=== PATIENT | male | born 1955 | race African-American/Black ===

== ENCOUNTER 2018-03-14 20:56 | Inpatient (IN) | payer MEDICAID ==
[~2018-03-14] VITALS: Ht 170.2 cm; Wt 70.3 kg
[2018-03-15] MEDS ORDERED: SODIUM CHLORIDE 0.9% 1,000 ML IV ONE (00:41)
[2018-03-15 01:28] LABS: INR 1.3; PROTHROMBIN TIME 13.4 sec (9.1-11.1)
[2018-03-15] MEDS ORDERED: LEVOFLOXACIN 750MG PREMIX 150 ML IV ONE (02:15)
[2018-03-15 02:59] LABS: CHLORIDE 99 mEq/L (98-107)
[2018-03-15 03:07] LABS: ETHANOL BLOOD < 10 mg/dL
[2018-03-15 04:07] LABS: HEMATOCRIT. 40.1 % (42.0-52.0); HEMOGLOBIN. 13.4 g/dL (14.0-18.0); MEAN CORPUSCULAR HEMOGLOBIN 32.3 pg (28.0-32.0); MEAN CORPUSCULAR VOLUME 96.4 fL (80.0-94.0); RED BLOOD CELL COUNT 4.16 mill/uL (4.7-6.1); RED CELL DISTRIBUTION WIDTH 15.2 % (11.6-14.6)
[2018-03-15 04:08] LABS: MEAN PLATELET VOLUME 10.2 fl (7.4-10.4); PLATELET 143 x1000/uL (130-400)
[2018-03-15 07:01] LABS: CLARITY URINE CLEAR (CLEAR); COLOR URINE YELLOW (YELLOW); KETONES URINE NEGATIVE (NEGATIVE); LEUKOCYTE ESTERASE URINE NEGATIVE (NEGATIVE); NITRITE URINE NEGATIVE (NEGATIVE); OCCULT BLOOD URINE TRACE (NEGATIVE); PH URINE 5.5 (4.5-8.0); PROTEIN URINE 1+ (NEGATIVE); SPECIFIC GRAVITY URINE 1.012 (1.005-1.030)
[2018-03-15 07:13] LABS: *BARBITURATES SCREEN URINE NEGATIVE (NEGATIVE); *BENZODIAZEPINES SCREEN URINE NEGATIVE (NEGATIVE); *COCAINE SCREEN URINE NEGATIVE (NEGATIVE)
[2018-03-15 07:14] LABS: CANNABINOID URINE SCREEN NEGATIVE (NEGATIVE); METHADONE URINE SCREEN NEGATIVE (NEGATIVE); OPIATES URINE SCREEN NEGATIVE (NEGATIVE); PHENCYCLIDINE URINE SCREEN NEGATIVE (NEGATIVE)
[2018-03-15 07:23] LABS: *AMPHETAMINES SCREEN URINE NEGATIVE (NEGATIVE)
[2018-03-15 08:28] LABS: PLATELET ESTIMATE NORMAL
[2018-03-15 09:58] VITALS: BP 164/96
[2018-03-15] MEDS ORDERED: ACETAMINOPHEN 325MG TABLET PO PRN (10:15)
[2018-03-15] MEDS ORDERED: ONDANSETRON HCL 4MG/2ML INJ IV PRN (10:15)
[2018-03-15 12:00] VITALS: BP 170/97
[2018-03-15] MEDS: TAMSULOSIN HCL 0.4MG SR CAPSULE PO SCH (12:52)
[2018-03-15] MEDS: AMLODIPINE 5MG TABLET PO SCH ×2 (12:53→21:47)
[2018-03-15] MEDS: CLONIDINE 0.1MG TABLET PO PRN (12:54)
[2018-03-15] MEDS ORDERED: SODIUM CHLORIDE 0.45% 1,000 ML IV SCH (13:15)
[2018-03-15] MEDS ORDERED: POTASSIUM CHLORIDE 20MEQ TABLET SR PO SCH (13:45)
[2018-03-15 13:46] LABS: VITAMIN B12 SERUM 441 pg/mL (211-911)
[2018-03-15] MEDS ORDERED: PAMIDRONATE DISODIUM 90 MG in SODIUM CHLORIDE 0.9% 1,000 ML IV SCH (15:00)
[2018-03-15] MEDS ORDERED: PNEUMOCOCCAL 23-VAL P-SAC VAC 0.5 ML IM ONE (15:00)
[2018-03-15] MEDS ORDERED: INFLUENZA VIRUS VACCINE(AFLURIA) 0.5ML SYR IM ONE (15:00)
[2018-03-15 16:00] VITALS: BP 162/92
[2018-03-15] MEDS ORDERED: AMLO5TAB4 MT (16:20)
[2018-03-15] MEDS ORDERED: TAMS-11 PO (16:22)
[2018-03-15] MEDS ORDERED: MORPHINE SULFATE 4 MG/ML CPJ (NOT FOR IM USE) IV PRN (17:00)
[2018-03-15 20:00] VITALS: BP 163/99
[2018-03-15] MEDS: METOPROLOL TARTRATE 50MG TABLET PO SCH (21:47)
[2018-03-16] VITALS: BP 159/89
[2018-03-16] MEDS: DEXT 5%/0.9% NACL 1,000 ML IV SCH ×3 (01:21→14:20)
[2018-03-16 04:00] VITALS: BP 174/94
[2018-03-16] MEDS: CLONIDINE 0.1MG TABLET PO PRN (05:47)
[2018-03-16 07:35] LABS: BASOPHILS % 0.4 % (0.0-2.0); EOSINOPHILS % 0.5 % (0.0-5.0); HEMATOCRIT. 33.1 % (42.0-52.0); HEMOGLOBIN. 11.8 g/dL (14.0-18.0); LYMPHOCYTES % 14.7 % (20.0-50.0); MEAN CORPUSCULAR HEMOGLOBIN 34.2 pg (28.0-32.0); MEAN PLATELET VOLUME 9.5 fl (7.4-10.4); MONOCYTES % 11.8 % (2.0-8.0); NEUTROPHILS % 72.6 % (40.0-76.0); PLATELET 142 x1000/uL (130-400); RED BLOOD CELL COUNT 3.45 mill/uL (4.7-6.1); RED CELL DISTRIBUTION WIDTH 15.2 % (11.6-14.6)
[2018-03-16 08:00] VITALS: BP 177/89
[2018-03-16] MEDS: AMLODIPINE 5MG TABLET PO SCH ×2 (09:09→21:00)
[2018-03-16] MEDS: TAMSULOSIN HCL 0.4MG SR CAPSULE PO SCH (09:09)
[2018-03-16] MEDS: METOPROLOL TARTRATE 50MG TABLET PO SCH ×2 (09:09→21:00)
[2018-03-16] MEDS ORDERED: KCL 10MEQ/50ML PREMIX 50 ML IV ONE (10:45)
[2018-03-16 12:00] VITALS: BP 172/94
[2018-03-16] MEDS ORDERED: POTASSIUM CHLORIDE INJ 30 MEQ in DEXT 5% WATER 250 ML IV SCH (12:00)
[2018-03-16] MEDS ORDERED: POTASSIUM CHLORIDE 20MEQ TABLET SR PO SCH (12:30)
[2018-03-16] MEDS: HYDRALAZINE HCL 100MG TABLET PO SCH ×2 (12:45→21:38)
[2018-03-16] MEDS ORDERED: HYDRALAZINE HCL 50MG TABLET PO SCH (14:00)
[2018-03-16] MEDS ORDERED: LACTULOSE 20G/30ML UDC PO NR (14:30)
[2018-03-16 16:00] VITALS: BP 182/92
[2018-03-16] MEDS: CLONIDINE 0.1MG TABLET PO SCH (17:01)
[2018-03-16] MEDS ORDERED: NA PHOS,M-B/NA PHOS,DI-BA ENEMA 118ML PR PRN (18:00)
[2018-03-16 20:00] VITALS: BP 160/85
[2018-03-17] VITALS: BP 158/79
[2018-03-17 04:00] VITALS: BP 157/97
[2018-03-17] MEDS: HYDRALAZINE HCL 100MG TABLET PO SCH ×3 (05:23→22:00)
[2018-03-17] MEDS: CLONIDINE 0.1MG TABLET PO SCH (05:24)
[2018-03-17 07:16] LABS: BASOPHILS % 0.5 % (0.0-2.0); EOSINOPHILS % 0.6 % (0.0-5.0); LYMPHOCYTES % 17.2 % (20.0-50.0); MEAN CORPUSCULAR HEMOGLOBIN 33.8 pg (28.0-32.0); MEAN CORPUSCULAR VOLUME 95.3 fL (80.0-94.0); MEAN PLATELET VOLUME 9.1 fl (7.4-10.4); MONOCYTES % 14.6 % (2.0-8.0); NEUTROPHILS % 67.1 % (40.0-76.0); PLATELET 133 x1000/uL (130-400); RED BLOOD CELL COUNT 3.25 mill/uL (4.7-6.1); RED CELL DISTRIBUTION WIDTH 15.5 % (11.6-14.6)
[2018-03-17 08:00] VITALS: BP 180/81
[2018-03-17] MEDS: METOPROLOL TARTRATE 50MG TABLET PO SCH ×2 (09:04→20:58)
[2018-03-17] MEDS: AMLODIPINE 5MG TABLET PO SCH ×2 (09:04→20:58)
[2018-03-17] MEDS: CLONIDINE 0.1MG TABLET PO PRN (09:05)
[2018-03-17] MEDS: TAMSULOSIN HCL 0.4MG SR CAPSULE PO SCH (09:05)
[2018-03-17] MEDS: DOCUSATE SODIUM SUGAR FREE 100MG/10ML UDC PO SCH (09:08)
[2018-03-17] MEDS ORDERED: FUROSEMIDE 40MG/4ML VIAL IVP SCH (09:15)
[2018-03-17] MEDS ORDERED: LIDOCAINE HCL 1% 20ML VIAL (Pyxis) INJ ONE (09:51)
[2018-03-17] MEDS ORDERED: LEVOFLOXACIN 500MG PREMIX 100 ML IV SCH (11:00)
[2018-03-17] MEDS ORDERED: BISACODYL 10MG SUPP PR PRN (11:15)
[2018-03-17 12:00] VITALS: BP 170/96
[2018-03-17] MEDS ORDERED: IPRATROPIUM/ALBUTEROL 0.5-3(2.5)MG/3ML NEB HHN PRN (13:15)
[2018-03-17] MEDS: CLONIDINE 0.2MG TABLET PO SCH ×2 (14:00→22:00)
[2018-03-17] MEDS ORDERED: HEPARIN SODIUM 1,000 UNIT/1ML VIAL IV SCH (15:00)
[2018-03-17 20:00] VITALS: BP 114/66
[2018-03-17 22:24] VITALS: BP 110/68
[2018-03-18] VITALS: BP 114/69
[2018-03-18 04:00] VITALS: BP 114/75
[2018-03-18] MEDS: CLONIDINE 0.2MG TABLET PO SCH ×3 (05:23→22:00)
[2018-03-18] MEDS: HYDRALAZINE HCL 100MG TABLET PO SCH ×3 (05:23→22:00)
[2018-03-18 07:38] LABS: HEMATOCRIT. 33.1 % (42.0-52.0); HEMOGLOBIN. 11.5 g/dL (14.0-18.0); MEAN CORPUSCULAR HEMOGLOBIN 33.2 pg (28.0-32.0); MEAN CORPUSCULAR VOLUME 95.2 fL (80.0-94.0); MEAN PLATELET VOLUME 9.2 fl (7.4-10.4); PLATELET 124 x1000/uL (130-400); RED BLOOD CELL COUNT 3.48 mill/uL (4.7-6.1); RED CELL DISTRIBUTION WIDTH 15.3 % (11.6-14.6)
[2018-03-18 08:00] VITALS: BP 112/60
[2018-03-18 08:01] LABS: PLATELET ESTIMATE SLIGHTLY DECREASED
[2018-03-18 08:09] LABS: PHOSPHORUS 2.9 mg/dL (2.5-4.9)
[2018-03-18] MEDS: TAMSULOSIN HCL 0.4MG SR CAPSULE PO SCH (08:54)
[2018-03-18] MEDS: METOPROLOL TARTRATE 50MG TABLET PO SCH ×2 (08:54→22:12)
[2018-03-18] MEDS: AMLODIPINE 5MG TABLET PO SCH ×2 (08:54→21:00)
[2018-03-18] MEDS: DOCUSATE SODIUM SUGAR FREE 100MG/10ML UDC PO SCH (08:54)
[2018-03-18 12:00] VITALS: BP 118/74
[2018-03-18 13:09] LABS: A/G RATIO 0.4 (0.7-1.7); ALBUMIN 3.1 g/dL (2.9-4.4); ALPHA-1-GLOBULIN 0.3 g/dL (0.0-0.4); ALPHA-2-GLOBULIN 0.8 g/dL (0.4-1.0); BETA GLOBULIN 5.7 g/dL (0.7-1.3); GAMMA GLOBULINS 0.4 g/dL (0.4-1.8); GLOBULIN TOTAL 7.3 g/dL (2.2-3.9); M-SPIKE 4.7 g/dL (Not Observed); TOTAL PROTEIN SERUM 10.4 g/dL (6.0-8.5)
[2018-03-18 16:00] VITALS: BP 110/73
[2018-03-18 20:00] VITALS: BP 121/74
[2018-03-18] MEDS: HYDROCODONE/ACETAMINOPHEN 5/325MG TABLET PO PRN (22:14)
[2018-03-19] VITALS: BP 107/72
[2018-03-19 04:00] VITALS: BP 126/84
[2018-03-19 04:09] LABS: KAPPA LT CHAINS FREE SERUM 89.4 mg/L (3.3-19.4); KAPPA/LAMBDA RATIO 8.76 (0.26-1.65); LAMBDA LT CHAINS FREE SERUM 10.2 mg/L (5.7-26.3)
[2018-03-19] MEDS: HYDRALAZINE HCL 100MG TABLET PO SCH ×3 (05:37→22:00)
[2018-03-19] MEDS: CLONIDINE 0.2MG TABLET PO SCH ×3 (05:37→22:00)
[2018-03-19 08:15] VITALS: BP 130/80
[2018-03-19 09:06] LABS: ANGIOTENSION CONVERTING ENZYME 18 U/L (14-82)
[2018-03-19 09:39] LABS: BASOPHILS % 0.7 % (0.0-2.0); EOSINOPHILS % 1.7 % (0.0-5.0); HEMATOCRIT. 35.1 % (42.0-52.0); HEMOGLOBIN. 12.2 g/dL (14.0-18.0); LYMPHOCYTES % 22.9 % (20.0-50.0); MEAN CORPUSCULAR HEMOGLOBIN 32.5 pg (28.0-32.0); MEAN PLATELET VOLUME 9.1 fl (7.4-10.4); MONOCYTES % 12.7 % (2.0-8.0); PLATELET 119 x1000/uL (130-400); RED BLOOD CELL COUNT 3.74 mill/uL (4.7-6.1); RED CELL DISTRIBUTION WIDTH 15.4 % (11.6-14.6)
[2018-03-19 09:54] LABS: PHOSPHORUS 2.4 mg/dL (2.5-4.9)
[2018-03-19] MEDS: DOCUSATE SODIUM SUGAR FREE 100MG/10ML UDC PO SCH (10:18)
[2018-03-19] MEDS: METOPROLOL TARTRATE 50MG TABLET PO SCH ×2 (10:19→21:00)
[2018-03-19] MEDS: TAMSULOSIN HCL 0.4MG SR CAPSULE PO SCH (10:19)
[2018-03-19] MEDS: AMLODIPINE 5MG TABLET PO SCH ×2 (10:20→21:00)
[2018-03-19] MEDS: LEVOFLOXACIN 250MG PREMIX 50 ML IV SCH (11:40)
[2018-03-19 12:10] VITALS: BP 132/70
[2018-03-19] MEDS ORDERED: POTASSIUM CHLORIDE 20MEQ TABLET SR PO NR (13:15)
[2018-03-19] MEDS ORDERED: POTASSIUM PHOS,M-BASIC-D-BASIC 10 MMOL in DEXT 5% WATER 246.6667 ML IV NR (14:30)
[2018-03-19 16:00] VITALS: BP 106/73
[2018-03-19 20:06] VITALS: BP 110/68
[2018-03-20] VITALS (7 sets, daily range): BP systolic 100–137; BP diastolic 56–81
[2018-03-20] MEDS: CLONIDINE 0.2MG TABLET PO SCH ×3 (05:38→20:44)
[2018-03-20] MEDS: HYDRALAZINE HCL 100MG TABLET PO SCH ×3 (05:38→20:44)
[2018-03-20 07:48] LABS: BASOPHILS % 0.3 % (0.0-2.0); EOSINOPHILS % 1.6 % (0.0-5.0); HEMATOCRIT. 31.9 % (42.0-52.0); HEMOGLOBIN. 11.4 g/dL (14.0-18.0); LYMPHOCYTES % 21.4 % (20.0-50.0); MEAN CORPUSCULAR HEMOGLOBIN 33.9 pg (28.0-32.0); MEAN CORPUSCULAR VOLUME 94.5 fL (80.0-94.0); MEAN PLATELET VOLUME 9.1 fl (7.4-10.4); MONOCYTES % 13.7 % (2.0-8.0); PLATELET 118 x1000/uL (130-400); RED BLOOD CELL COUNT 3.38 mill/uL (4.7-6.1); RED CELL DISTRIBUTION WIDTH 15.6 % (11.6-14.6)
[2018-03-20 08:42] LABS: PHOSPHORUS 2.9 mg/dL (2.5-4.9)
[2018-03-20] MEDS: AMLODIPINE 5MG TABLET PO SCH ×2 (10:12→20:42)
[2018-03-20] MEDS: METOPROLOL TARTRATE 50MG TABLET PO SCH ×2 (10:12→20:39)
[2018-03-20] MEDS: HYDROCODONE/ACETAMINOPHEN 5/325MG TABLET PO PRN (11:20)
[2018-03-20] MEDS ORDERED: PAMIDRONATE DISODIUM 60 MG in SODIUM CHLORIDE 0.9% 1,000 ML IV NR (16:00)
[2018-03-20] MEDS ORDERED: POTASSIUM CHLORIDE 20MEQ TABLET SR PO NR (18:30)
[2018-03-21] VITALS (7 sets, daily range): BP systolic 107–137; BP diastolic 59–73
[2018-03-21] MEDS: CLONIDINE 0.2MG TABLET PO SCH ×3 (06:48→22:00)
[2018-03-21] MEDS: HYDRALAZINE HCL 100MG TABLET PO SCH ×3 (06:48→21:19)
[2018-03-21 07:59] LABS: PHOSPHORUS 2.7 mg/dL (2.5-4.9)
[2018-03-21 08:08] LABS: BASOPHILS % 0.4 % (0.0-2.0); EOSINOPHILS % 2.3 % (0.0-5.0); HEMATOCRIT. 31.2 % (42.0-52.0); HEMOGLOBIN. 10.9 g/dL (14.0-18.0); LYMPHOCYTES % 26.9 % (20.0-50.0); MEAN CORPUSCULAR VOLUME 94.3 fL (80.0-94.0); MEAN PLATELET VOLUME 8.8 fl (7.4-10.4); MONOCYTES % 14.5 % (2.0-8.0); NEUTROPHILS % 55.9 % (40.0-76.0); PLATELET 120 x1000/uL (130-400); RED BLOOD CELL COUNT 3.31 mill/uL (4.7-6.1); RED CELL DISTRIBUTION WIDTH 15.1 % (11.6-14.6)
[2018-03-21] MEDS: DOCUSATE SODIUM SUGAR FREE 100MG/10ML UDC PO SCH ×2 (08:13→10:36)
[2018-03-21] MEDS: METOPROLOL TARTRATE 50MG TABLET PO SCH ×2 (08:14→21:19)
[2018-03-21] MEDS: AMLODIPINE 5MG TABLET PO SCH ×2 (08:14→21:19)
[2018-03-21] MEDS: TAMSULOSIN HCL 0.4MG SR CAPSULE PO SCH ×2 (08:14→10:35)
[2018-03-21] MEDS: LEVOFLOXACIN 250MG PREMIX 50 ML IV SCH (08:15)
[2018-03-21] MEDS ORDERED: POTASSIUM CHLORIDE 20MEQ TABLET SR PO NR (12:00)
[2018-03-21 13:06] LABS: VITAMIN D 1-25 DIHYDROXY < 5.0 pg/mL (19.9-79.3)
[2018-03-22] VITALS: BP 109/68
[2018-03-22 04:00] VITALS: BP 124/70
[2018-03-22] MEDS: CLONIDINE 0.2MG TABLET PO SCH ×3 (06:00→21:00)
[2018-03-22] MEDS: HYDRALAZINE HCL 100MG TABLET PO SCH ×3 (06:02→21:00)
[2018-03-22 07:07] LABS: BASOPHILS % 0.4 % (0.0-2.0); EOSINOPHILS % 1.5 % (0.0-5.0); HEMATOCRIT. 31.5 % (42.0-52.0); HEMOGLOBIN. 11.2 g/dL (14.0-18.0); LYMPHOCYTES % 24.6 % (20.0-50.0); MEAN CORPUSCULAR HEMOGLOBIN 33.8 pg (28.0-32.0); MEAN CORPUSCULAR VOLUME 95.1 fL (80.0-94.0); MEAN PLATELET VOLUME 8.5 fl (7.4-10.4); MONOCYTES % 14.4 % (2.0-8.0); NEUTROPHILS % 59.1 % (40.0-76.0); PLATELET 140 x1000/uL (130-400); RED BLOOD CELL COUNT 3.31 mill/uL (4.7-6.1); RED CELL DISTRIBUTION WIDTH 14.9 % (11.6-14.6)
[2018-03-22 08:00] VITALS: BP 126/61
[2018-03-22] MEDS: DOCUSATE SODIUM SUGAR FREE 100MG/10ML UDC PO SCH (09:00)
[2018-03-22] MEDS: AMLODIPINE 5MG TABLET PO SCH ×2 (10:08→20:59)
[2018-03-22] MEDS: METOPROLOL TARTRATE 50MG TABLET PO SCH ×2 (10:09→20:58)
[2018-03-22] MEDS: LEVOFLOXACIN 250MG TABLET PO SCH (10:09)
[2018-03-22] MEDS: TAMSULOSIN HCL 0.4MG SR CAPSULE PO SCH (10:10)
[2018-03-22 12:00] VITALS: BP 118/68
[2018-03-22] MEDS: POTASSIUM CHLORIDE 20MEQ TABLET SR PO NR ×3 (15:45→19:22)
[2018-03-22 16:00] VITALS: BP 120/68
[2018-03-22 20:00] VITALS: BP 120/66
[2018-03-23] VITALS: BP 110/67
[2018-03-23 04:00] VITALS: BP 125/68
[2018-03-23] MEDS: HYDRALAZINE HCL 100MG TABLET PO SCH ×2 (05:32→14:12)
[2018-03-23] MEDS: CLONIDINE 0.2MG TABLET PO SCH ×2 (05:33→14:00)
[2018-03-23 07:40] LABS: HEMOGLOBIN. 10.3 g/dL (14.0-18.0); MEAN CORPUSCULAR HEMOGLOBIN 33.6 pg (28.0-32.0); MEAN CORPUSCULAR VOLUME 94.4 fL (80.0-94.0); MEAN PLATELET VOLUME 8.4 fl (7.4-10.4); PLATELET 174 x1000/uL (130-400); RED BLOOD CELL COUNT 3.07 mill/uL (4.7-6.1)
[2018-03-23 08:00] VITALS: BP 139/73
[2018-03-23] MEDS: LEVOFLOXACIN 250MG TABLET PO SCH (08:45)
[2018-03-23] MEDS: TAMSULOSIN HCL 0.4MG SR CAPSULE PO SCH (08:45)
[2018-03-23] MEDS: AMLODIPINE 5MG TABLET PO SCH (08:45)
[2018-03-23] MEDS: DOCUSATE SODIUM SUGAR FREE 100MG/10ML UDC PO SCH (08:46)
[2018-03-23] MEDS: METOPROLOL TARTRATE 50MG TABLET PO SCH (08:46)
[2018-03-23 10:40] LABS: CHLORIDE 103 mEq/L (98-107)
[2018-03-23] MEDS ORDERED: POTASSIUM CHLORIDE 20MEQ/PACKET PO NR (11:00)
[2018-03-23 12:00] VITALS: BP 114/72
[2018-03-23 15:34] VITALS: BP 114/72
[2018-03-23 16:00] VITALS: BP 120/65
[2018-03-23 20:27] LABS: PLATELET ESTIMATE NORMAL
[2018-03-24] MEDS ORDERED: LEVOFLOXACIN 500MG TABLET PO SCH (11:00)
== END 2018-03-23 18:30 | disposition home health service (06) | DRG 691 ==
LOC: ER 20:56 → 7WST 03-15 04:13 → EDBEDREQ 03-15 04:16 → EDBEDREQTM 03-15 04:16 → ENRESERV 03-15 07:04
PROVIDERS: ADMIT Internal Medicine; ATTEND Internal Medicine
PROC: 02HV33Z Insertion of Infusion Device into Superior Vena Cava, Percutaneous Approach (ICD-10-PCS; principal; 2018-03-17)
PROC: B5181ZA Fluoroscopy of Superior Vena Cava using Low Osmolar Contrast, Guidance (ICD-10-PCS; 2018-03-17)
PROC: B548ZZA Ultrasonography of Superior Vena Cava, Guidance (ICD-10-PCS; 2018-03-17)
PROC: 5A1D70Z Performance of Urinary Filtration, Intermittent, Less than 6 Hours Per Day (ICD-10-PCS; 2018-03-17)
DX: C90.00 Multiple myeloma not having achieved remission (principal); J96.01 Acute respiratory failure with hypoxia; E43 Unspecified severe protein-calorie malnutrition; G93.41 Metabolic encephalopathy; I50.43 Acute on chronic combined systolic (congestive) and diastolic (congestive) heart failure; J18.1 Lobar pneumonia, unspecified organism; N17.9 Acute kidney failure, unspecified; E87.0 Hyperosmolality and hypernatremia; I11.0 Hypertensive heart disease with heart failure; E83.52 Hypercalcemia; M54.9 Dorsalgia, unspecified; E87.6 Hypokalemia; M48.56XA Collapsed vertebra, not elsewhere classified, lumbar region, initial encounter for fracture; K57.30 Diverticulosis of large intestine without perforation or abscess without bleeding; G89.29 Other chronic pain; N40.0 Benign prostatic hyperplasia without lower urinary tract symptoms; F10.10 Alcohol abuse, uncomplicated; K59.00 Constipation, unspecified; F17.210 Nicotine dependence, cigarettes, uncomplicated; J98.11 Atelectasis; Z82.49 Family history of ischemic heart disease and other diseases of the circulatory system; Z86.73 Personal history of transient ischemic attack (TIA), and cerebral infarction without residual deficits; Z68.24 Body mass index [BMI] 24.0-24.9, adult
CPT/HCPCS: 36415; 36556; 70551; 71045; 74018; 74176; 76937; 77001; 80048; 80305; 82140; 82164; 82330; 82533; 82607; 82652; 82784; 82962; 83735; 83880; 83883; 83970; 84100; 84153; 84155; 84165; 90686; 90732; 92610; 93306; 93970; 96361; 96365; 97162; 97530; 99285; C1752; G0482; J1644; J1956; J2270; J2430; J3480; J3490; J7030; J7040; J7042; J7050; J7060; G0103

== ENCOUNTER 2018-04-29 21:06 | Inpatient (IN) | payer MEDICAID ==
[~2018-04-29] VITALS: Ht 170.2 cm; Wt 75.3 kg
[~2018-04-29 21:06] MED LIST: TAMS-11 PO
[2018-04-29 22:36] LABS: BG BASE EXCESS 2.7 mmol/L (-2.0-2.0); BG BILEVEL POS AIRWAY PRESSURE 17/5; BG CARBOXYHEMOGLOBIN 0.4 % (0.5-1.5); BG DEOXYHEMOGLOBIN 0.2 % (0.0-5.0); BG FRACTION INSPIRED OXYGEN 100; BG HCO3 ACT 27.3 mmol/L (22.0-26.0); BG METHEMOGLOBIN 0.2 % (0.0-1.5); BG OXYGEN SATURATION 99.8 % (92.0-98.5); BG OXYHEMOGLOBIN 99.2 % (94.0-97.0); BG PO2 442.6 mmHg (75.0-100.0); BG SAMPLE SITE RIGHT BRACHIAL; BG TOTAL HEMOGLOBIN 8.9 g/dL (12.0-18.0); BG VENT MODE MASK - BIPAP; BG VENT RATE 16 set
[2018-04-29 22:38] LABS: CHLORIDE 97 mEq/L (98-107)
[2018-04-29 22:42] LABS: INR 1.3; PROTHROMBIN TIME 12.6 sec (9.1-11.1)
[2018-04-29] MEDS ORDERED: SODIUM CHLORIDE 0.9% 1,000 ML IV ONE ×3 (22:45→23:15)
[2018-04-30] VITALS (49 sets, daily range): BP systolic 97–162; BP diastolic 43–86
[2018-04-30 01:25] LABS: HEMATOCRIT. 23.8 % (42.0-52.0); HEMOGLOBIN. 7.9 g/dL (14.0-18.0); MEAN CORPUSCULAR HEMOGLOBIN 31.4 pg (28.0-32.0); MEAN CORPUSCULAR VOLUME 94.6 fL (80.0-94.0); RED BLOOD CELL COUNT 2.51 mill/uL (4.7-6.1); RED CELL DISTRIBUTION WIDTH 18.1 % (11.6-14.6)
[2018-04-30 09:30] LABS: COLOR URINE YELLOW (YELLOW); KETONES URINE NEGATIVE (NEGATIVE); LEUKOCYTE ESTERASE URINE NEGATIVE (NEGATIVE); NITRITE URINE NEGATIVE (NEGATIVE); OCCULT BLOOD URINE NEGATIVE (NEGATIVE); PH URINE 5.5 (4.5-8.0); PROTEIN URINE NEGATIVE (NEGATIVE); SPECIFIC GRAVITY URINE 1.018 (1.005-1.030); UROBILINOGEN URINE 0.2 E.U./dL (0.2-1.0)
[2018-04-30] MEDS ORDERED: PROPOFOL 10MG/ML 100ML 100 ML IV SCH (09:30)
[2018-04-30 09:32] LABS: CLARITY URINE CLEAR (CLEAR)
[2018-04-30] MEDS ORDERED: PAMIDRONATE DISODIUM 90 MG in SODIUM CHLORIDE 0.9% 1,000 ML IV ONE (10:00)
[2018-04-30] MEDS: PROPOFOL 10MG/ML 100ML 100 ML IV PRN ×3 (10:15→21:47)
[2018-04-30 10:58] LABS: BG BASE EXCESS 1.3 mmol/L (-2.0-2.0); BG CARBOXYHEMOGLOBIN 0.2 % (0.5-1.5); BG DEOXYHEMOGLOBIN 3.1 % (0.0-5.0); BG FRACTION INSPIRED OXYGEN 50; BG HCO3 ACT 24.4 mmol/L (22.0-26.0); BG OXYGEN SATURATION 96.9 % (92.0-98.5); BG OXYHEMOGLOBIN 96.7 % (94.0-97.0); BG PCO2 32.1 mmHg (35.0-45.0); BG PH 7.499 (7.350-7.450); BG PO2 91.8 mmHg (75.0-100.0); BG SAMPLE SITE RIGHT RADIAL; BG TIDAL VOLUME(mL) 550 mL; BG TOTAL HEMOGLOBIN 7.6 g/dL (12.0-18.0); BG VENT MODE VENT - A/C; BG VENT RATE 16 set
[2018-04-30] MEDS ORDERED: IPRATROPIUM/ALBUTEROL 0.5-3(2.5)MG/3ML NEB HHN PRN (11:00)
[2018-04-30] MEDS ORDERED: BISACODYL 10MG SUPP PR PRN (11:15)
[2018-04-30] MEDS ORDERED: PAMIDRONATE DISODIUM 60 MG in SODIUM CHLORIDE 0.9% 1,000 ML IV NR (11:30)
[2018-04-30] MEDS: DOCUSATE SODIUM SUGAR FREE 100MG/10ML UDC NG SCH (11:50)
[2018-04-30] MEDS ORDERED: IPRATROPIUM/ALBUTEROL 0.5-3(2.5)MG/3ML NEB HHN SCH (12:00)
[2018-04-30] MEDS: PIPERACILLIN/TAZ 3.375G PREMIX 50 ML IV SCH ×3 (12:38→23:55)
[2018-04-30] MEDS: PANTOPRAZOLE SODIUM 40 MG/VIAL IV SCH (12:38)
[2018-04-30] MEDS: IPRATROPIUM/ALBUTEROL 0.5-3(2.5)MG/3ML NEB INH SCH ×3 (12:51→20:47)
[2018-04-30] MEDS ORDERED: KCL 20MEQ/100ML PREMIX 100 ML IV NR (13:00)
[2018-04-30] MEDS ORDERED: VANCOMYCIN 1250MG in DEXTROSE 5% WATER 250ML IV NR (13:00)
[2018-04-30] MEDS: METRONIDAZOLE 500 MG PREMIX 100 ML IV SCH ×2 (13:50→21:47)
[2018-04-30] MEDS: SODIUM CHLORIDE 0.9% 1,000 ML IV SCH ×2 (13:51→21:48)
[2018-04-30] MEDS ORDERED: FUROSEMIDE 40MG/4ML VIAL IVP NR (14:00)
[2018-04-30 14:41] LABS: NUCLEATED RED BLOOD CELLS 1 /100 WBC
[2018-04-30 14:43] LABS: MEAN PLATELET VOLUME 8.3 fl (7.4-10.4); PLATELET 102 x1000/uL (130-400); PLATELET ESTIMATE DECREASED
[2018-04-30 16:26] LABS: VITAMIN B12 SERUM 283 pg/mL (211-911)
[2018-04-30] MEDS ORDERED: THIAMINE HCL 100 MG in SODIUM CHLORIDE 0.9% 49 ML IV NR (17:00)
[2018-04-30 17:36] LABS: FERRITIN 1130 ng/mL (22-322)
[2018-05-01] VITALS (81 sets, daily range): BP systolic 104–168; BP diastolic 57–133
[2018-05-01] MEDS: IPRATROPIUM/ALBUTEROL 0.5-3(2.5)MG/3ML NEB INH SCH ×6 (00:21→20:38)
[2018-05-01 05:07] LABS: MEAN CORPUSCULAR HEMOGLOBIN 31.2 pg (28.0-32.0); MEAN CORPUSCULAR VOLUME 94.6 fL (80.0-94.0); MEAN PLATELET VOLUME 8.1 fl (7.4-10.4); PLATELET 95 x1000/uL (130-400); RED BLOOD CELL COUNT 1.69 mill/uL (4.7-6.1)
[2018-05-01 05:12] LABS: HEMOGLOBIN. 5.3 g/dL (14.0-18.0)
[2018-05-01 05:14] LABS: CHLORIDE 111 mEq/L (98-107)
[2018-05-01 05:23] LABS: PHOSPHORUS 2.9 mg/dL (2.5-4.9)
[2018-05-01] MEDS: PIPERACILLIN/TAZ 3.375G PREMIX 50 ML IV SCH ×3 (05:58→21:57)
[2018-05-01] MEDS: METRONIDAZOLE 500 MG PREMIX 100 ML IV SCH ×3 (05:58→21:57)
[2018-05-01] MEDS: SODIUM CHLORIDE 0.9% 1,000 ML IV SCH ×2 (05:58→17:00)
[2018-05-01] MEDS: PROPOFOL 10MG/ML 100ML 100 ML IV PRN ×3 (06:59→20:30)
[2018-05-01] MEDS ORDERED: PAMIDRONATE DISODIUM 60 MG in SODIUM CHLORIDE 0.9% 500 ML IV ONE (08:30)
[2018-05-01] MEDS ORDERED: POTASSIUM CHLORIDE 20MEQ TABLET SR PO NR (08:30)
[2018-05-01] MEDS: PANTOPRAZOLE SODIUM 40 MG/VIAL IV SCH (08:49)
[2018-05-01] MEDS: DOCUSATE SODIUM SUGAR FREE 100MG/10ML UDC NG SCH (08:52)
[2018-05-01] MEDS ORDERED: LIDOCAINE HCL 1% 20ML VIAL (Pyxis) INJ ONE (09:42)
[2018-05-01] MEDS ORDERED: KCL 20MEQ/100ML PREMIX 100 ML IV SCH (10:00)
[2018-05-01 10:06] LABS: HEMOGLOBIN 5.7 g/dL (14.0-18.0)
[2018-05-01 10:07] LABS: HEMATOCRIT 16.5 % (42.0-52.0)
[2018-05-01] MEDS ORDERED: ETOMIDATE 2MG/ML 10ML VIAL IV ONE (10:37)
[2018-05-01] MEDS ORDERED: SUCCINYLCHOLINE CHLORIDE 200MG/10ML IV ONE (10:37)
[2018-05-01] MEDS ORDERED: ALBUMIN HUMAN 25GM/100ML (25%) IV NR (11:00)
[2018-05-01] MEDS ORDERED: FUROSEMIDE 40MG/4ML VIAL IVP NR (11:00)
[2018-05-01 11:02] LABS: NUCLEATED RED BLOOD CELLS 3 /100 WBC
[2018-05-01 11:05] LABS: PLATELET ESTIMATE SLIGHTLY DECREASED
[2018-05-01] MEDS: VANCOMYCIN 750 MG PREMIX 150 ML IV SCH (11:50)
[2018-05-01] MEDS: ACETYLCYSTEINE 100MG/ML 10% VIAL 4ML INH SCH (16:30)
[2018-05-02] VITALS (98 sets, daily range): BP systolic 101–158; BP diastolic 59–99
[2018-05-02] MEDS: ACETYLCYSTEINE 100MG/ML 10% VIAL 4ML INH SCH ×2 (00:29→09:14)
[2018-05-02] MEDS: IPRATROPIUM/ALBUTEROL 0.5-3(2.5)MG/3ML NEB INH SCH ×6 (00:29→20:14)
[2018-05-02] MEDS: METRONIDAZOLE 500 MG PREMIX 100 ML IV SCH ×3 (05:00→22:17)
[2018-05-02] MEDS: PIPERACILLIN/TAZ 3.375G PREMIX 50 ML IV SCH ×3 (05:00→22:17)
[2018-05-02] MEDS: SODIUM CHLORIDE 0.9% 1,000 ML IV SCH ×3 (05:14→05:16)
[2018-05-02 06:27] LABS: MEAN CORPUSCULAR HEMOGLOBIN 31.1 pg (28.0-32.0); MEAN CORPUSCULAR VOLUME 92.3 fL (80.0-94.0); MEAN PLATELET VOLUME 8.3 fl (7.4-10.4); PLATELET 79 x1000/uL (130-400); RED BLOOD CELL COUNT 2.16 mill/uL (4.7-6.1); RED CELL DISTRIBUTION WIDTH 17.3 % (11.6-14.6)
[2018-05-02 06:43] LABS: PHOSPHORUS 2.8 mg/dL (2.5-4.9)
[2018-05-02 06:53] LABS: HEMOGLOBIN. 6.7 g/dL (14.0-18.0)
[2018-05-02 06:54] LABS: HEMATOCRIT. 19.9 % (42.0-52.0)
[2018-05-02] MEDS ORDERED: POTASSIUM CHLORIDE 20MEQ TABLET SR PO SCH (07:00)
[2018-05-02 07:54] LABS: NUCLEATED RED BLOOD CELLS 2 /100 WBC; PLATELET ESTIMATE DECREASED
[2018-05-02] MEDS: ACETAMINOPHEN 650MG/20.3ML UDC NG PRN (08:46)
[2018-05-02] MEDS ORDERED: KCL 20MEQ/100ML PREMIX 100 ML IV SCH (09:00)
[2018-05-02] MEDS ORDERED: FUROSEMIDE 40MG/4ML VIAL IVP SCH ×2 (09:30→12:45)
[2018-05-02] MEDS ORDERED: LACTULOSE 20G/30ML UDC PO SCH (10:00)
[2018-05-02] MEDS: DOCUSATE SODIUM SUGAR FREE 100MG/10ML UDC NG SCH (11:05)
[2018-05-02] MEDS: PANTOPRAZOLE SODIUM 40 MG/VIAL IV SCH (11:05)
[2018-05-02] MEDS: THIAMINE HCL 100MG TABLET PO SCH (11:06)
[2018-05-02] MEDS: SODIUM CHLORIDE 0.45% 1,000 ML IV SCH ×2 (11:08→22:17)
[2018-05-02] MEDS: PROPOFOL 10MG/ML 100ML 100 ML IV PRN ×2 (11:35→18:19)
[2018-05-02] MEDS: VANCOMYCIN 750 MG PREMIX 150 ML IV SCH (13:00)
[2018-05-02] MEDS: BUDESONIDE 0.5MG/2ML NEB HHN SCH ×2 (16:35→20:14)
[2018-05-02 23:48] LABS: HEMATOCRIT 25.1 % (42.0-52.0); HEMOGLOBIN 8.4 g/dL (14.0-18.0); MEAN CORPUSCULAR HEMOGLOBIN 31.1 pg (28.0-32.0); MEAN CORPUSCULAR VOLUME 92.6 fL (80.0-94.0); PLATELET 83 x1000/uL (130-400); RED BLOOD CELL COUNT 2.71 mill/uL (4.7-6.1); RED CELL DISTRIBUTION WIDTH 17.2 % (11.6-14.6)
[2018-05-03] VITALS (97 sets, daily range): BP systolic 100–172; BP diastolic 58–93
[2018-05-03] MEDS: IPRATROPIUM/ALBUTEROL 0.5-3(2.5)MG/3ML NEB INH SCH ×6 (00:25→20:54)
[2018-05-03] MEDS: PROPOFOL 10MG/ML 100ML 100 ML IV PRN ×3 (02:09→15:16)
[2018-05-03 05:37] LABS: PHOSPHORUS 2.1 mg/dL (2.5-4.9)
[2018-05-03 05:48] LABS: HEMATOCRIT. 24.1 % (42.0-52.0); HEMOGLOBIN. 8.1 g/dL (14.0-18.0); MEAN CORPUSCULAR VOLUME 92.1 fL (80.0-94.0); MEAN PLATELET VOLUME 8.1 fl (7.4-10.4); PLATELET 79 x1000/uL (130-400); RED BLOOD CELL COUNT 2.62 mill/uL (4.7-6.1)
[2018-05-03] MEDS: SODIUM CHLORIDE 0.45% 1,000 ML IV SCH (06:07)
[2018-05-03] MEDS: METRONIDAZOLE 500 MG PREMIX 100 ML IV SCH ×3 (06:10→22:51)
[2018-05-03] MEDS: PIPERACILLIN/TAZ 3.375G PREMIX 50 ML IV SCH ×3 (06:10→22:51)
[2018-05-03 07:11] LABS: NUCLEATED RED BLOOD CELLS 1 /100 WBC
[2018-05-03 07:12] LABS: PLATELET ESTIMATE DECREASED
[2018-05-03] MEDS: BUDESONIDE 0.5MG/2ML NEB HHN SCH ×2 (08:19→20:54)
[2018-05-03] MEDS: THIAMINE HCL 100MG TABLET PO SCH (08:38)
[2018-05-03] MEDS: PANTOPRAZOLE SODIUM 40 MG/VIAL IV SCH (08:38)
[2018-05-03] MEDS: DOCUSATE SODIUM SUGAR FREE 100MG/10ML UDC NG SCH (08:38)
[2018-05-03] MEDS ORDERED: FUROSEMIDE 40MG/4ML VIAL IVP SCH (09:00)
[2018-05-03 09:06] LABS: FOLATE HEMATOCRIT 20.6 % (37.5-51.0)
[2018-05-03] MEDS: DEXT 5%/0.2% NACL 1,000 ML IV SCH (09:45)
[2018-05-03] MEDS ORDERED: POTASSIUM PHOS,M-BASIC-D-BASIC 30 MMOL in SODIUM CHLORIDE 0.9% 500 ML IV SCH (10:00)
[2018-05-03 11:04] LABS: BG BASE EXCESS -0.4 mmol/L (-2.0-2.0); BG CARBOXYHEMOGLOBIN 0.3 % (0.5-1.5); BG DEOXYHEMOGLOBIN 1.1 % (0.0-5.0); BG FRACTION INSPIRED OXYGEN 40; BG HCO3 ACT 23.4 mmol/L (22.0-26.0); BG METHEMOGLOBIN 0.1 % (0.0-1.5); BG OXYGEN SATURATION 98.9 % (92.0-98.5); BG OXYHEMOGLOBIN 98.5 % (94.0-97.0); BG PCO2 35.2 mmHg (35.0-45.0); BG PH 7.441 (7.350-7.450); BG PO2 150.5 mmHg (75.0-100.0); BG SAMPLE SITE RIGHT BRACHIAL; BG TIDAL VOLUME(mL) 500 mL; BG TOTAL HEMOGLOBIN 9.3 g/dL (12.0-18.0); BG VENT MODE VENT - A/C; BG VENT RATE 14 set
[2018-05-03] MEDS: VANCOMYCIN 750 MG PREMIX 150 ML IV SCH (14:31)
[2018-05-03] MEDS ORDERED: POTASSIUM CHLORIDE INJ 40 MEQ in DEXT 5% WATER 250 ML IV SCH (16:00)
[2018-05-03 16:08] LABS: HEMATOCRIT 23.4 % (42.0-52.0); HEMOGLOBIN 8.1 g/dL (14.0-18.0); MEAN CORPUSCULAR HEMOGLOBIN 31.9 pg (28.0-32.0); MEAN CORPUSCULAR VOLUME 92.2 fL (80.0-94.0); PLATELET 83 x1000/uL (130-400); RED BLOOD CELL COUNT 2.54 mill/uL (4.7-6.1); RED CELL DISTRIBUTION WIDTH 16.6 % (11.6-14.6)
[2018-05-04] VITALS (88 sets, daily range): BP systolic 96–161; BP diastolic 58–99
[2018-05-04] MEDS: ACETAMINOPHEN 650MG/20.3ML UDC NG PRN ×2 (00:42→08:16)
[2018-05-04] MEDS: IPRATROPIUM/ALBUTEROL 0.5-3(2.5)MG/3ML NEB INH SCH ×6 (00:56→20:11)
[2018-05-04] MEDS: PROPOFOL 10MG/ML 100ML 100 ML IV PRN ×3 (03:29→21:07)
[2018-05-04 05:20] LABS: HEMATOCRIT. 23.1 % (42.0-52.0); HEMOGLOBIN. 7.7 g/dL (14.0-18.0); MEAN CORPUSCULAR HEMOGLOBIN 30.7 pg (28.0-32.0); MEAN CORPUSCULAR VOLUME 92.2 fL (80.0-94.0); MEAN PLATELET VOLUME 8.2 fl (7.4-10.4); PLATELET 88 x1000/uL (130-400); RED CELL DISTRIBUTION WIDTH 16.9 % (11.6-14.6)
[2018-05-04 05:33] LABS: CHLORIDE 113 mEq/L (98-107)
[2018-05-04 05:40] LABS: PHOSPHORUS 2.3 mg/dL (2.5-4.9)
[2018-05-04] MEDS: METRONIDAZOLE 500 MG PREMIX 100 ML IV SCH ×3 (06:32→21:06)
[2018-05-04] MEDS: PIPERACILLIN/TAZ 3.375G PREMIX 50 ML IV SCH ×3 (06:32→17:32)
[2018-05-04] MEDS: DEXT 5%/0.2% NACL 1,000 ML IV SCH (06:32)
[2018-05-04] MEDS: BUDESONIDE 0.5MG/2ML NEB HHN SCH ×2 (08:07→20:11)
[2018-05-04] MEDS: THIAMINE HCL 100MG TABLET PO SCH (08:16)
[2018-05-04] MEDS: PANTOPRAZOLE SODIUM 40 MG/VIAL IV SCH (08:16)
[2018-05-04] MEDS: DOCUSATE SODIUM SUGAR FREE 100MG/10ML UDC NG SCH (08:16)
[2018-05-04 08:50] LABS: BG BASE EXCESS 0.4 mmol/L (-2.0-2.0); BG CARBOXYHEMOGLOBIN 0.3 % (0.5-1.5); BG DEOXYHEMOGLOBIN 1.4 % (0.0-5.0); BG FRACTION INSPIRED OXYGEN 40; BG HCO3 ACT 24.6 mmol/L (22.0-26.0); BG METHEMOGLOBIN 0.4 % (0.0-1.5); BG OXYGEN SATURATION 98.6 % (92.0-98.5); BG OXYHEMOGLOBIN 97.9 % (94.0-97.0); BG PCO2 37.6 mmHg (35.0-45.0); BG PH 7.433 (7.350-7.450); BG PO2 135.2 mmHg (75.0-100.0); BG SAMPLE SITE RIGHT RADIAL; BG TIDAL VOLUME(mL) 500 mL; BG TOTAL HEMOGLOBIN 9.4 g/dL (12.0-18.0); BG VENT MODE VENT - A/C; BG VENT RATE 14 set
[2018-05-04] MEDS ORDERED: MAGNESIUM 2 G PREMIX 50 ML IV SCH (09:00)
[2018-05-04] MEDS ORDERED: POTASSIUM CHLORIDE INJ 40 MEQ in DEXT 5% WATER 250 ML IV SCH (10:00)
[2018-05-04 10:07] LABS: NUCLEATED RED BLOOD CELLS 1 /100 WBC
[2018-05-04 10:08] LABS: PLATELET ESTIMATE DECREASED
[2018-05-04] MEDS ORDERED: POTASSIUM PHOS,M-BASIC-D-BASIC 20 MMOL in DEXT 5% WATER 243.3333 ML IV SCH (12:00)
[2018-05-04] MEDS: VANCOMYCIN 750 MG PREMIX 150 ML IV SCH (15:00)
[2018-05-05] VITALS (95 sets, daily range): BP systolic 107–176; BP diastolic 42–132
[2018-05-05] MEDS: IPRATROPIUM/ALBUTEROL 0.5-3(2.5)MG/3ML NEB INH SCH ×7 (00:01→23:53)
[2018-05-05] MEDS: PIPERACILLIN/TAZ 3.375G PREMIX 50 ML IV SCH ×5 (00:30→23:32)
[2018-05-05] MEDS: PROPOFOL 10MG/ML 100ML 100 ML IV PRN ×4 (02:49→23:32)
[2018-05-05] MEDS: METRONIDAZOLE 500 MG PREMIX 100 ML IV SCH ×3 (05:15→21:59)
[2018-05-05 05:32] LABS: HEMATOCRIT. 24.6 % (42.0-52.0); HEMOGLOBIN. 8.1 g/dL (14.0-18.0); MEAN CORPUSCULAR HEMOGLOBIN 31.1 pg (28.0-32.0); MEAN CORPUSCULAR VOLUME 93.9 fL (80.0-94.0); MEAN PLATELET VOLUME 8.1 fl (7.4-10.4); PLATELET 93 x1000/uL (130-400); RED BLOOD CELL COUNT 2.62 mill/uL (4.7-6.1); RED CELL DISTRIBUTION WIDTH 17.1 % (11.6-14.6)
[2018-05-05 05:41] LABS: CHLORIDE 109 mEq/L (98-107)
[2018-05-05 05:50] LABS: PHOSPHORUS 2.9 mg/dL (2.5-4.9)
[2018-05-05 07:37] LABS: NUCLEATED RED BLOOD CELLS 2 /100 WBC; PLATELET ESTIMATE DECREASED
[2018-05-05 08:02] LABS: BG BASE EXCESS 0.2 mmol/L (-2.0-2.0); BG CARBOXYHEMOGLOBIN 0.1 % (0.5-1.5); BG DEOXYHEMOGLOBIN 1.2 % (0.0-5.0); BG FRACTION INSPIRED OXYGEN 40; BG HCO3 ACT 23.7 mmol/L (22.0-26.0); BG METHEMOGLOBIN 0.3 % (0.0-1.5); BG OXYGEN SATURATION 98.8 % (92.0-98.5); BG OXYHEMOGLOBIN 98.4 % (94.0-97.0); BG PCO2 33.5 mmHg (35.0-45.0); BG PH 7.467 (7.350-7.450); BG PO2 138.6 mmHg (75.0-100.0); BG SAMPLE SITE RIGHT BRACHIAL; BG TIDAL VOLUME(mL) 500 mL; BG VENT MODE VENT - A/C; BG VENT RATE 14 set
[2018-05-05] MEDS: PANTOPRAZOLE SODIUM 40 MG/VIAL IV SCH (08:15)
[2018-05-05] MEDS: DOCUSATE SODIUM SUGAR FREE 100MG/10ML UDC NG SCH (08:16)
[2018-05-05] MEDS: THIAMINE HCL 100MG TABLET PO SCH (08:16)
[2018-05-05] MEDS: BUDESONIDE 0.5MG/2ML NEB HHN SCH (08:23)
[2018-05-05] MEDS ORDERED: FUROSEMIDE 40MG/4ML VIAL IVP NR (08:30)
[2018-05-05] MEDS ORDERED: POTASSIUM CHLORIDE INJ 40 MEQ in DEXT 5% WATER 250 ML IV NR (11:30)
[2018-05-05] MEDS: VANCOMYCIN 1250MG in DEXTROSE 5% WATER 250ML IV SCH (12:33)
[2018-05-05 13:06] LABS: FOLATE HEMOLYSATE 201.4 ng/mL (Not Estab.); FOLATE RBC 978 ng/mL (>498)
[2018-05-05] MEDS: ACETAMINOPHEN 650MG/20.3ML UDC NG PRN (22:07)
[2018-05-06] VITALS (83 sets, daily range): BP systolic 93–156; BP diastolic 41–82
[2018-05-06] MEDS: IPRATROPIUM/ALBUTEROL 0.5-3(2.5)MG/3ML NEB INH SCH ×5 (04:08→20:37)
[2018-05-06 04:41] LABS: HEMATOCRIT. 21.8 % (42.0-52.0); HEMOGLOBIN. 7.4 g/dL (14.0-18.0); MEAN CORPUSCULAR HEMOGLOBIN 31.2 pg (28.0-32.0); MEAN CORPUSCULAR VOLUME 91.9 fL (80.0-94.0); PLATELET 100 x1000/uL (130-400); RED BLOOD CELL COUNT 2.38 mill/uL (4.7-6.1); RED CELL DISTRIBUTION WIDTH 16.8 % (11.6-14.6)
[2018-05-06 05:07] LABS: CHLORIDE 107 mEq/L (98-107)
[2018-05-06] MEDS: METRONIDAZOLE 500 MG PREMIX 100 ML IV SCH ×3 (05:38→23:28)
[2018-05-06] MEDS: PIPERACILLIN/TAZ 3.375G PREMIX 50 ML IV SCH ×3 (05:38→18:56)
[2018-05-06] MEDS: PROPOFOL 10MG/ML 100ML 100 ML IV PRN ×2 (05:39→12:01)
[2018-05-06] MEDS: PANTOPRAZOLE SODIUM 40 MG/VIAL IV SCH (08:18)
[2018-05-06] MEDS: THIAMINE HCL 100MG TABLET PO SCH (08:19)
[2018-05-06] MEDS ORDERED: FUROSEMIDE 20MG/2ML VIAL IVP SCH ×2 (08:45→09:00)
[2018-05-06] MEDS: DOCUSATE SODIUM SUGAR FREE 100MG/10ML UDC NG SCH (09:27)
[2018-05-06 09:59] LABS: BG BASE EXCESS 1.8 mmol/L (-2.0-2.0); BG CARBOXYHEMOGLOBIN 0.2 % (0.5-1.5); BG FRACTION INSPIRED OXYGEN 40; BG HCO3 ACT 25.3 mmol/L (22.0-26.0); BG METHEMOGLOBIN 0.3 % (0.0-1.5); BG OXYHEMOGLOBIN 98.5 % (94.0-97.0); BG PCO2 35.2 mmHg (35.0-45.0); BG PH 7.474 (7.350-7.450); BG PO2 146.6 mmHg (75.0-100.0); BG SAMPLE SITE RIGHT RADIAL; BG TIDAL VOLUME(mL) 500 mL; BG TOTAL HEMOGLOBIN 9.4 g/dL (12.0-18.0); BG VENT MODE VENT - A/C; BG VENT RATE 14 set
[2018-05-06 11:24] LABS: NUCLEATED RED BLOOD CELLS 2 /100 WBC; PLATELET ESTIMATE DECREASED
[2018-05-06] MEDS: VANCOMYCIN 1250MG in DEXTROSE 5% WATER 250ML IV SCH (12:35)
[2018-05-06 13:03] LABS: INR 1.3; PARTIAL THROMBOPLASTIN TIME 37.6 sec (23.4-31.0); PROTHROMBIN TIME 12.7 sec (9.1-11.1)
[2018-05-06] MEDS: MIDAZOLAM HCL 100 MG in DEXT 5% WATER 80 ML IV PRN (15:01)
[2018-05-06] MEDS: FENTANYL CITRATE/PF 500 MCG in SODIUM CHLORIDE 0.9% 40 ML IV PRN ×2 (15:01→23:31)
[2018-05-07] VITALS (86 sets, daily range): BP systolic 95–159; BP diastolic 51–99
[2018-05-07] MEDS: IPRATROPIUM/ALBUTEROL 0.5-3(2.5)MG/3ML NEB INH SCH ×6 (00:44→20:28)
[2018-05-07] MEDS: MIDAZOLAM HCL 100 MG in DEXT 5% WATER 80 ML IV PRN ×2 (01:56→14:13)
[2018-05-07] MEDS: ACETAMINOPHEN 650MG/20.3ML UDC NG PRN ×2 (02:05→19:48)
[2018-05-07 06:47] LABS: HEMATOCRIT. 26.1 % (42.0-52.0); HEMOGLOBIN. 9.2 g/dL (14.0-18.0); MEAN CORPUSCULAR HEMOGLOBIN 32.5 pg (28.0-32.0); MEAN CORPUSCULAR VOLUME 92.1 fL (80.0-94.0); MEAN PLATELET VOLUME 8.2 fl (7.4-10.4); PLATELET 111 x1000/uL (130-400); RED BLOOD CELL COUNT 2.83 mill/uL (4.7-6.1); RED CELL DISTRIBUTION WIDTH 15.7 % (11.6-14.6)
[2018-05-07 06:52] LABS: CHLORIDE 104 mEq/L (98-107)
[2018-05-07] MEDS: PIPERACILLIN/TAZ 3.375G PREMIX 50 ML IV SCH ×4 (06:52→18:37)
[2018-05-07] MEDS: METRONIDAZOLE 500 MG PREMIX 100 ML IV SCH ×2 (06:53→14:33)
[2018-05-07 07:15] LABS: PHOSPHORUS 2.4 mg/dL (2.5-4.9)
[2018-05-07 08:32] LABS: BG BASE EXCESS 3.2 mmol/L (-2.0-2.0); BG DEOXYHEMOGLOBIN 1.4 % (0.0-5.0); BG FRACTION INSPIRED OXYGEN 5; BG HCO3 ACT 27.2 mmol/L (22.0-26.0); BG METHEMOGLOBIN 0.2 % (0.0-1.5); BG OXYGEN SATURATION 98.6 % (92.0-98.5); BG OXYHEMOGLOBIN 98.4 % (94.0-97.0); BG PCO2 38.7 mmHg (35.0-45.0); BG PH 7.464 (7.350-7.450); BG PO2 144.2 mmHg (75.0-100.0); BG SAMPLE SITE RIGHT RADIAL; BG TIDAL VOLUME(mL) 500 mL; BG TOTAL HEMOGLOBIN 10.1 g/dL (12.0-18.0); BG VENT MODE VENT - A/C; BG VENT RATE 14 set
[2018-05-07] MEDS: PANTOPRAZOLE SODIUM 40 MG/VIAL IV SCH (08:37)
[2018-05-07] MEDS: THIAMINE HCL 100MG TABLET PO SCH (08:37)
[2018-05-07] MEDS: DOCUSATE SODIUM SUGAR FREE 100MG/10ML UDC NG SCH (09:00)
[2018-05-07] MEDS ORDERED: FUROSEMIDE 20MG/2ML VIAL IVP SCH (09:00)
[2018-05-07] MEDS ORDERED: POTASSIUM CHLORIDE 20MEQ TABLET SR PO ONE (10:00)
[2018-05-07] MEDS ORDERED: POTASSIUM CHLORIDE 20MEQ/PACKET NG SCH (10:00)
[2018-05-07] MEDS ORDERED: POTASSIUM-SODIUM PHOSPHATE POWDER PACKET PO SCH (10:00)
[2018-05-07] MEDS: FENTANYL CITRATE/PF 500 MCG in SODIUM CHLORIDE 0.9% 40 ML IV PRN ×2 (10:41→18:37)
[2018-05-07 11:02] LABS: PLATELET ESTIMATE SLIGHTLY DECREASED
[2018-05-07] MEDS: VANCOMYCIN 1250MG in DEXTROSE 5% WATER 250ML IV SCH (12:21)
[2018-05-07] MEDS: SILVER SULFADIAZINE 1% CREAM 50GM TOP SCH (20:07)
[2018-05-08] VITALS (83 sets, daily range): BP systolic 94–148; BP diastolic 55–88
[2018-05-08] MEDS: MIDAZOLAM HCL 100 MG in DEXT 5% WATER 80 ML IV PRN (00:03)
[2018-05-08] MEDS: FENTANYL CITRATE/PF 500 MCG in SODIUM CHLORIDE 0.9% 40 ML IV PRN ×3 (00:04→15:56)
[2018-05-08] MEDS: PIPERACILLIN/TAZ 3.375G PREMIX 50 ML IV SCH ×4 (00:07→18:08)
[2018-05-08] MEDS: IPRATROPIUM/ALBUTEROL 0.5-3(2.5)MG/3ML NEB INH SCH ×6 (00:22→20:44)
[2018-05-08 05:46] LABS: CHLORIDE 104 mEq/L (98-107)
[2018-05-08 05:47] LABS: HEMATOCRIT. 32.2 % (42.0-52.0); HEMOGLOBIN. 10.5 g/dL (14.0-18.0); MEAN CORPUSCULAR VOLUME 95.1 fL (80.0-94.0); MEAN PLATELET VOLUME 8.5 fl (7.4-10.4); PLATELET 131 x1000/uL (130-400); RED BLOOD CELL COUNT 3.39 mill/uL (4.7-6.1); RED CELL DISTRIBUTION WIDTH 16.6 % (11.6-14.6)
[2018-05-08 05:51] LABS: PHOSPHORUS 2.3 mg/dL (2.5-4.9)
[2018-05-08 08:27] LABS: ATYPICAL LYMPHOCYTES 1; NUCLEATED RED BLOOD CELLS 1 /100 WBC
[2018-05-08] MEDS: PANTOPRAZOLE SODIUM 40 MG/VIAL IV SCH (08:27)
[2018-05-08 08:28] LABS: PLATELET ESTIMATE NORMAL
[2018-05-08] MEDS: THIAMINE HCL 100MG TABLET PO SCH (08:31)
[2018-05-08] MEDS: DOCUSATE SODIUM SUGAR FREE 100MG/10ML UDC NG SCH (08:31)
[2018-05-08] MEDS: ACETAMINOPHEN 650MG/20.3ML UDC NG PRN ×2 (08:38→23:15)
[2018-05-08] MEDS ORDERED: POTASSIUM CHLORIDE 20MEQ TABLET SR PO NR (11:00)
[2018-05-08] MEDS ORDERED: POTASSIUM-SODIUM PHOSPHATE POWDER PACKET PO NR (11:00)
[2018-05-08] MEDS: VANCOMYCIN 1250MG in DEXTROSE 5% WATER 250ML IV SCH (11:01)
[2018-05-08] MEDS: SILVER SULFADIAZINE 1% CREAM 50GM TOP SCH ×2 (12:18→22:10)
[2018-05-08] MEDS: METOCLOPRAMIDE HCL 10MG/2ML VIAL IV SCH ×2 (12:18→18:09)
[2018-05-08] MEDS ORDERED: POTASSIUM CHLORIDE INJ 40 MEQ in DEXT 5% WATER 250 ML IV SCH (13:00)
[2018-05-09] VITALS (87 sets, daily range): BP systolic 97–151; BP diastolic 56–88
[2018-05-09] MEDS: IPRATROPIUM/ALBUTEROL 0.5-3(2.5)MG/3ML NEB INH SCH ×6 (00:34→20:25)
[2018-05-09] MEDS: FENTANYL CITRATE/PF 500 MCG in SODIUM CHLORIDE 0.9% 40 ML IV PRN ×4 (00:40→23:52)
[2018-05-09] MEDS: METOCLOPRAMIDE HCL 10MG/2ML VIAL IV SCH ×5 (00:56→23:06)
[2018-05-09] MEDS: PIPERACILLIN/TAZ 3.375G PREMIX 50 ML IV SCH ×5 (00:57→23:06)
[2018-05-09] MEDS: MIDAZOLAM HCL 100 MG in DEXT 5% WATER 80 ML IV PRN ×2 (03:57→18:04)
[2018-05-09 05:30] LABS: HEMOGLOBIN. 8.7 g/dL (14.0-18.0); MEAN CORPUSCULAR HEMOGLOBIN 31.3 pg (28.0-32.0); MEAN CORPUSCULAR VOLUME 93.8 fL (80.0-94.0); MEAN PLATELET VOLUME 8.1 fl (7.4-10.4); PLATELET 130 x1000/uL (130-400); RED BLOOD CELL COUNT 2.78 mill/uL (4.7-6.1); RED CELL DISTRIBUTION WIDTH 16.4 % (11.6-14.6)
[2018-05-09 05:35] LABS: CHLORIDE 104 mEq/L (98-107)
[2018-05-09 05:41] LABS: PHOSPHORUS 2.8 mg/dL (2.5-4.9)
[2018-05-09] MEDS: DOCUSATE SODIUM SUGAR FREE 100MG/10ML UDC NG SCH (08:23)
[2018-05-09] MEDS: THIAMINE HCL 100MG TABLET PO SCH (08:23)
[2018-05-09] MEDS: SILVER SULFADIAZINE 1% CREAM 50GM TOP SCH ×2 (08:30→21:01)
[2018-05-09] MEDS: PANTOPRAZOLE SODIUM 40 MG/VIAL IV SCH (08:30)
[2018-05-09] MEDS: ACETAMINOPHEN 650MG SUPP PR PRN (08:37)
[2018-05-09] MEDS ORDERED: POTASSIUM CHLORIDE 20MEQ TABLET SR PO NR (09:15)
[2018-05-09 09:28] LABS: CLARITY URINE CLEAR (CLEAR); COLOR URINE YELLOW (YELLOW); KETONES URINE NEGATIVE (NEGATIVE); LEUKOCYTE ESTERASE URINE TRACE (NEGATIVE); NITRITE URINE NEGATIVE (NEGATIVE); OCCULT BLOOD URINE 2+ (NEGATIVE); PROTEIN URINE TRACE (NEGATIVE); SPECIFIC GRAVITY URINE 1.029 (1.005-1.030)
[2018-05-09 09:47] LABS: PLATELET ESTIMATE NORMAL
[2018-05-09 10:03] LABS: BG BASE EXCESS 3.5 mmol/L (-2.0-2.0); BG CARBOXYHEMOGLOBIN 0.8 % (0.5-1.5); BG DEOXYHEMOGLOBIN 1.5 % (0.0-5.0); BG FRACTION INSPIRED OXYGEN 40; BG HCO3 ACT 27.7 mmol/L (22.0-26.0); BG METHEMOGLOBIN 0.2 % (0.0-1.5); BG OXYGEN SATURATION 98.5 % (92.0-98.5); BG OXYHEMOGLOBIN 97.5 % (94.0-97.0); BG PCO2 40.3 mmHg (35.0-45.0); BG PH 7.455 (7.350-7.450); BG PO2 114.1 mmHg (75.0-100.0); BG SAMPLE SITE RIGHT RADIAL; BG TIDAL VOLUME(mL) 500 mL; BG VENT MODE VENT - A/C; BG VENT RATE 14 set
[2018-05-09] MEDS ORDERED: FUROSEMIDE 40MG/4ML VIAL IVP NR (10:15)
[2018-05-09] MEDS: VANCOMYCIN 1250MG in DEXTROSE 5% WATER 250ML IV SCH (11:59)
[2018-05-09] MEDS ORDERED: POTASSIUM CHLORIDE INJ 60 MEQ in DEXT 5% WATER 500 ML IV NR (12:00)
[2018-05-09] MEDS ORDERED: ROCURONIUM BROMIDE 10MG/ML VIAL 5ML IV ONE (14:17)
[2018-05-09] MEDS ORDERED: MIDAZOLAM HCL 2 MG/2 ML VIAL ONE (14:24)
[2018-05-09] MEDS: ACETAMINOPHEN 650MG/20.3ML UDC NG PRN (21:22)
[2018-05-10] VITALS (84 sets, daily range): BP systolic 100–145; BP diastolic 57–93
[2018-05-10] MEDS: IPRATROPIUM/ALBUTEROL 0.5-3(2.5)MG/3ML NEB INH SCH ×5 (00:29→15:47)
[2018-05-10] MEDS: ACETAMINOPHEN 650MG/20.3ML UDC NG PRN ×2 (03:43→10:43)
[2018-05-10] MEDS: METOCLOPRAMIDE HCL 10MG/2ML VIAL IV SCH ×3 (05:17→17:11)
[2018-05-10] MEDS: PIPERACILLIN/TAZ 3.375G PREMIX 50 ML IV SCH ×3 (05:17→17:11)
[2018-05-10 05:41] LABS: CHLORIDE 103 mEq/L (98-107)
[2018-05-10 05:44] LABS: EOSINOPHILS % 3.4 % (0.0-5.0); HEMATOCRIT. 24.8 % (42.0-52.0); HEMOGLOBIN. 8.6 g/dL (14.0-18.0); LYMPHOCYTES % 31.7 % (20.0-50.0); MEAN CORPUSCULAR HEMOGLOBIN 32.5 pg (28.0-32.0); MEAN CORPUSCULAR VOLUME 93.4 fL (80.0-94.0); MEAN PLATELET VOLUME 8.2 fl (7.4-10.4); NEUTROPHILS % 49.9 % (40.0-76.0); PLATELET 140 x1000/uL (130-400); RED BLOOD CELL COUNT 2.66 mill/uL (4.7-6.1); RED CELL DISTRIBUTION WIDTH 15.9 % (11.6-14.6)
[2018-05-10 05:50] LABS: PHOSPHORUS 3.1 mg/dL (2.5-4.9)
[2018-05-10] MEDS: MIDAZOLAM HCL 100 MG in DEXT 5% WATER 80 ML IV PRN (06:42)
[2018-05-10] MEDS: FENTANYL CITRATE/PF 500 MCG in SODIUM CHLORIDE 0.9% 40 ML IV PRN ×2 (06:59→16:14)
[2018-05-10] MEDS ORDERED: FUROSEMIDE 20MG/2ML VIAL IVP SCH (08:00)
[2018-05-10] MEDS: THIAMINE HCL 100MG TABLET PO SCH (09:01)
[2018-05-10] MEDS: DOCUSATE SODIUM SUGAR FREE 100MG/10ML UDC NG SCH (09:01)
[2018-05-10] MEDS: PANTOPRAZOLE SODIUM 40 MG/VIAL IV SCH ×2 (09:01→21:28)
[2018-05-10] MEDS: SILVER SULFADIAZINE 1% CREAM 50GM TOP SCH ×2 (09:02→21:29)
[2018-05-10] MEDS: RISPERIDONE 1MG TABLET GT SCH ×2 (10:42→21:28)
[2018-05-10] MEDS: VANCOMYCIN 1250MG in DEXTROSE 5% WATER 250ML IV SCH (11:55)
[2018-05-10] MEDS: ACETAMINOPHEN 650MG SUPP PR PRN (16:14)
[2018-05-11] VITALS (89 sets, daily range): BP systolic 110–158; BP diastolic 59–96
[2018-05-11] MEDS: FENTANYL CITRATE/PF 500 MCG in SODIUM CHLORIDE 0.9% 40 ML IV PRN ×3 (00:24→22:21)
[2018-05-11] MEDS: IPRATROPIUM/ALBUTEROL 0.5-3(2.5)MG/3ML NEB INH SCH ×6 (00:33→20:56)
[2018-05-11] MEDS: METOCLOPRAMIDE HCL 10MG/2ML VIAL IV SCH ×4 (00:38→17:22)
[2018-05-11 05:54] LABS: INR 1.3; PARTIAL THROMBOPLASTIN TIME 43.2 sec (23.4-31.0); PROTHROMBIN TIME 13.2 sec (9.1-11.1)
[2018-05-11] MEDS: PIPERACILLIN/TAZ 3.375G PREMIX 50 ML IV SCH ×3 (05:54→17:22)
[2018-05-11 06:01] LABS: HEMATOCRIT. 22.7 % (42.0-52.0); HEMOGLOBIN. 7.7 g/dL (14.0-18.0); MEAN CORPUSCULAR HEMOGLOBIN 31.5 pg (28.0-32.0); MEAN CORPUSCULAR VOLUME 93.3 fL (80.0-94.0); MEAN PLATELET VOLUME 7.9 fl (7.4-10.4); PLATELET 136 x1000/uL (130-400); RED BLOOD CELL COUNT 2.43 mill/uL (4.7-6.1); RED CELL DISTRIBUTION WIDTH 16.3 % (11.6-14.6)
[2018-05-11 06:15] LABS: CHLORIDE 102 mEq/L (98-107)
[2018-05-11 06:27] LABS: PHOSPHORUS 2.6 mg/dL (2.5-4.9)
[2018-05-11] MEDS: MIDAZOLAM HCL 100 MG in DEXT 5% WATER 80 ML IV PRN (07:48)
[2018-05-11] MEDS: ACETAMINOPHEN 650MG SUPP PR PRN (08:00)
[2018-05-11 08:14] LABS: NUCLEATED RED BLOOD CELLS 1 /100 WBC; PLATELET ESTIMATE NORMAL
[2018-05-11] MEDS: SILVER SULFADIAZINE 1% CREAM 50GM TOP SCH ×2 (08:42→20:22)
[2018-05-11] MEDS: PANTOPRAZOLE SODIUM 40 MG/VIAL IV SCH ×2 (08:42→20:32)
[2018-05-11] MEDS: RISPERIDONE 1MG TABLET GT SCH ×2 (08:42→20:21)
[2018-05-11] MEDS: DOCUSATE SODIUM SUGAR FREE 100MG/10ML UDC NG SCH (09:00)
[2018-05-11] MEDS: THIAMINE HCL 100MG TABLET PO SCH (09:00)
[2018-05-11] MEDS: VANCOMYCIN 1250MG in DEXTROSE 5% WATER 250ML IV SCH (13:46)
[2018-05-11] MEDS ORDERED: MIDAZOLAM HCL 5 MG/5 ML VIAL ONE (16:15)
[2018-05-11] MEDS ORDERED: FENTANYL CITRATE/PF 50MCG/ML 2ML VIAL ONE (16:16)
[2018-05-11] MEDS ORDERED: LORAZEPAM 2MG/ML CPJ IV PRN (16:30)
[2018-05-11] MEDS: ACETAMINOPHEN 650MG/20.3ML UDC NG PRN (20:21)
[2018-05-12] VITALS (89 sets, daily range): BP systolic 99–195; BP diastolic 46–86
[2018-05-12] MEDS: PIPERACILLIN/TAZ 3.375G PREMIX 50 ML IV SCH ×4 (00:30→17:11)
[2018-05-12] MEDS: METOCLOPRAMIDE HCL 10MG/2ML VIAL IV SCH ×4 (00:31→16:43)
[2018-05-12] MEDS: IPRATROPIUM/ALBUTEROL 0.5-3(2.5)MG/3ML NEB INH SCH ×6 (01:34→20:05)
[2018-05-12] MEDS: ACETAMINOPHEN 650MG/20.3ML UDC NG PRN ×3 (04:51→15:50)
[2018-05-12 06:35] LABS: BASOPHILS % 0.5 % (0.0-2.0); EOSINOPHILS % 2.6 % (0.0-5.0); HEMATOCRIT. 21.5 % (42.0-52.0); HEMOGLOBIN. 7.3 g/dL (14.0-18.0); LYMPHOCYTES % 32.7 % (20.0-50.0); MEAN CORPUSCULAR HEMOGLOBIN 31.9 pg (28.0-32.0); MEAN CORPUSCULAR VOLUME 93.8 fL (80.0-94.0); MEAN PLATELET VOLUME 7.9 fl (7.4-10.4); MONOCYTES % 9.4 % (2.0-8.0); NEUTROPHILS % 54.8 % (40.0-76.0); PLATELET 138 x1000/uL (130-400); RED BLOOD CELL COUNT 2.29 mill/uL (4.7-6.1); RED CELL DISTRIBUTION WIDTH 15.9 % (11.6-14.6)
[2018-05-12 07:09] LABS: CHLORIDE 105 mEq/L (98-107)
[2018-05-12 07:18] LABS: PHOSPHORUS 2.7 mg/dL (2.5-4.9)
[2018-05-12] MEDS ORDERED: POTASSIUM CHLORIDE INJ 40 MEQ in DEXT 5% WATER 250 ML IV SCH (09:00)
[2018-05-12] MEDS: DOCUSATE SODIUM SUGAR FREE 100MG/10ML UDC NG SCH (09:00)
[2018-05-12] MEDS: PANTOPRAZOLE SODIUM 40 MG/VIAL IV SCH ×2 (10:26→21:18)
[2018-05-12] MEDS: RISPERIDONE 1MG TABLET GT SCH ×2 (10:26→21:18)
[2018-05-12] MEDS: THIAMINE HCL 100MG TABLET PO SCH (10:26)
[2018-05-12] MEDS: SILVER SULFADIAZINE 1% CREAM 50GM TOP SCH ×2 (10:27→21:20)
[2018-05-12] MEDS: FENTANYL CITRATE/PF 500 MCG in SODIUM CHLORIDE 0.9% 40 ML IV PRN (10:39)
[2018-05-12] MEDS ORDERED: FENTANYL CITRATE/PF 50MCG/ML 2ML VIAL IV PRN (11:30)
[2018-05-12 12:43] LABS: MEAN CORPUSCULAR HEMOGLOBIN 31.8 pg (28.0-32.0); MEAN CORPUSCULAR VOLUME 93.7 fL (80.0-94.0); PLATELET 141 x1000/uL (130-400); RED BLOOD CELL COUNT 2.18 mill/uL (4.7-6.1); RED CELL DISTRIBUTION WIDTH 15.7 % (11.6-14.6)
[2018-05-12 12:52] LABS: HEMATOCRIT 20.4 % (42.0-52.0); HEMOGLOBIN 6.9 g/dL (14.0-18.0)
[2018-05-12] MEDS: VANCOMYCIN 1250MG in DEXTROSE 5% WATER 250ML IV SCH (13:06)
[2018-05-12] MEDS: MICAFUNGIN 100 MG in SODIUM CHLORIDE 0.9% 100 ML IV SCH (14:41)
[2018-05-12] MEDS: LORAZEPAM 2MG/ML CPJ IV PRN (16:44)
[2018-05-12] MEDS: SUCRALFATE 1 G/10 ML UDC GT SCH (17:10)
[2018-05-13] VITALS (49 sets, daily range): BP systolic 112–148; BP diastolic 55–86
[2018-05-13] MEDS: IPRATROPIUM/ALBUTEROL 0.5-3(2.5)MG/3ML NEB INH SCH ×5 (00:22→20:33)
[2018-05-13] MEDS: SUCRALFATE 1 G/10 ML UDC GT SCH ×4 (00:23→17:03)
[2018-05-13] MEDS: METOCLOPRAMIDE HCL 10MG/2ML VIAL IV SCH ×4 (00:24→17:03)
[2018-05-13] MEDS: PIPERACILLIN/TAZ 3.375G PREMIX 50 ML IV SCH ×4 (00:24→17:03)
[2018-05-13 02:30] LABS: HEMATOCRIT 22.6 % (42.0-52.0); HEMOGLOBIN 7.4 g/dL (14.0-18.0)
[2018-05-13 02:36] LABS: INR 1.4; PROTHROMBIN TIME 13.6 sec (9.1-11.1)
[2018-05-13] MEDS: ACETAMINOPHEN 650MG/20.3ML UDC NG PRN ×2 (05:12→14:52)
[2018-05-13 06:10] LABS: BASOPHILS % 0.4 % (0.0-2.0); EOSINOPHILS % 1.7 % (0.0-5.0); HEMATOCRIT. 21.4 % (42.0-52.0); HEMOGLOBIN. 7.2 g/dL (14.0-18.0); LYMPHOCYTES % 32.9 % (20.0-50.0); MEAN CORPUSCULAR VOLUME 95.4 fL (80.0-94.0); MEAN PLATELET VOLUME 7.9 fl (7.4-10.4); MONOCYTES % 13.5 % (2.0-8.0); NEUTROPHILS % 51.5 % (40.0-76.0); PLATELET 140 x1000/uL (130-400); RED BLOOD CELL COUNT 2.25 mill/uL (4.7-6.1); RED CELL DISTRIBUTION WIDTH 15.2 % (11.6-14.6)
[2018-05-13 06:24] LABS: CHLORIDE 115 mEq/L (98-107)
[2018-05-13 06:30] LABS: PHOSPHORUS 2.1 mg/dL (2.5-4.9)
[2018-05-13] MEDS: RISPERIDONE 1MG TABLET GT SCH ×2 (08:33→21:07)
[2018-05-13] MEDS: PANTOPRAZOLE SODIUM 40 MG/VIAL IV SCH ×2 (08:33→21:07)
[2018-05-13] MEDS: THIAMINE HCL 100MG TABLET PO SCH (08:33)
[2018-05-13] MEDS: DOCUSATE SODIUM SUGAR FREE 100MG/10ML UDC NG SCH (08:33)
[2018-05-13] MEDS: DEXTROSE 5% WATER 1,000 ML IV SCH (08:33)
[2018-05-13] MEDS: SILVER SULFADIAZINE 1% CREAM 50GM TOP SCH ×2 (08:33→21:07)
[2018-05-13] MEDS ORDERED: POTASSIUM PHOS,M-BASIC-D-BASIC 30 MMOL in SODIUM CHLORIDE 0.9% 500 ML IV SCH (10:00)
[2018-05-13] MEDS ORDERED: POTASSIUM CHLORIDE INJ 40 MEQ in DEXT 5% WATER 250 ML IV SCH (10:00)
[2018-05-13] MEDS ORDERED: HYDROMORPHONE HCL/PF 2MG/ML CPJ IV PRN (11:15)
[2018-05-13] MEDS: LORAZEPAM 2MG/ML CPJ IV PRN (13:24)
[2018-05-13] MEDS: MICAFUNGIN 100 MG in SODIUM CHLORIDE 0.9% 100 ML IV SCH (14:53)
[2018-05-13] MEDS: VANCOMYCIN 1 G PREMIX 200 ML IV SCH (14:54)
[2018-05-13 22:44] LABS: MEAN CORPUSCULAR HEMOGLOBIN 32.1 pg (28.0-32.0); MEAN CORPUSCULAR VOLUME 94.5 fL (80.0-94.0); PLATELET 151 x1000/uL (130-400); RED BLOOD CELL COUNT 2.06 mill/uL (4.7-6.1); RED CELL DISTRIBUTION WIDTH 15.3 % (11.6-14.6)
[2018-05-13 22:51] LABS: HEMATOCRIT 19.5 % (42.0-52.0); HEMOGLOBIN 6.6 g/dL (14.0-18.0)
[2018-05-14] VITALS (16 sets, daily range): BP systolic 141–172; BP diastolic 72–85
[2018-05-14] MEDS: SUCRALFATE 1 G/10 ML UDC GT SCH ×4 (00:20→18:20)
[2018-05-14] MEDS: PIPERACILLIN/TAZ 3.375G PREMIX 50 ML IV SCH (00:20)
[2018-05-14] MEDS: METOCLOPRAMIDE HCL 10MG/2ML VIAL IV SCH ×4 (00:20→18:20)
[2018-05-14] MEDS: ACETAMINOPHEN 650MG/20.3ML UDC NG PRN (00:23)
[2018-05-14] MEDS: IPRATROPIUM/ALBUTEROL 0.5-3(2.5)MG/3ML NEB INH SCH ×6 (00:29→20:30)
[2018-05-14 08:23] LABS: CHLORIDE 113 mEq/L (98-107)
[2018-05-14 08:29] LABS: PHOSPHORUS 2.3 mg/dL (2.5-4.9)
[2018-05-14 08:38] LABS: BASOPHILS % 0.4 % (0.0-2.0); EOSINOPHILS % 2.6 % (0.0-5.0); HEMATOCRIT. 21.4 % (42.0-52.0); HEMOGLOBIN. 7.3 g/dL (14.0-18.0); LYMPHOCYTES % 32.8 % (20.0-50.0); MEAN CORPUSCULAR HEMOGLOBIN 31.7 pg (28.0-32.0); MEAN CORPUSCULAR VOLUME 92.9 fL (80.0-94.0); MEAN PLATELET VOLUME 7.8 fl (7.4-10.4); MONOCYTES % 12.4 % (2.0-8.0); NEUTROPHILS % 51.8 % (40.0-76.0); PLATELET 151 x1000/uL (130-400); RED BLOOD CELL COUNT 2.31 mill/uL (4.7-6.1); RED CELL DISTRIBUTION WIDTH 16.4 % (11.6-14.6)
[2018-05-14] MEDS: PANTOPRAZOLE SODIUM 40 MG/VIAL IV SCH ×2 (08:44→21:08)
[2018-05-14] MEDS: RISPERIDONE 1MG TABLET GT SCH ×2 (08:44→21:08)
[2018-05-14] MEDS: THIAMINE HCL 100MG TABLET PO SCH (08:44)
[2018-05-14] MEDS: CEFTRIAXONE 2 G in DEXTROSE 5% WATER 50 ML IV SCH (08:44)
[2018-05-14] MEDS: SILVER SULFADIAZINE 1% CREAM 50GM TOP SCH ×2 (08:45→21:09)
[2018-05-14] MEDS: DOCUSATE SODIUM SUGAR FREE 100MG/10ML UDC NG SCH (08:45)
[2018-05-14] MEDS ORDERED: POTASSIUM CHLORIDE 20MEQ TABLET SR PO NR (10:00)
[2018-05-14] MEDS: VANCOMYCIN 1 G PREMIX 200 ML IV SCH (10:04)
[2018-05-14] MEDS: MICAFUNGIN 100 MG in SODIUM CHLORIDE 0.9% 100 ML IV SCH (14:21)
[2018-05-14] MEDS: DEXTROSE 5% WATER 1,000 ML IV SCH (18:22)
[2018-05-14] MEDS ORDERED: POTASSIUM PHOS,M-BASIC-D-BASIC 20 MMOL in DEXT 5% WATER 243.3333 ML IV NR (18:30)
[2018-05-15] VITALS (18 sets, daily range): BP systolic 98–146; BP diastolic 57–81
[2018-05-15] MEDS: METOCLOPRAMIDE HCL 10MG/2ML VIAL IV SCH ×4 (00:45→18:32)
[2018-05-15] MEDS: SUCRALFATE 1 G/10 ML UDC GT SCH ×4 (00:45→18:32)
[2018-05-15] MEDS: VANCOMYCIN 1 G PREMIX 200 ML IV SCH ×2 (02:41→20:34)
[2018-05-15] MEDS: IPRATROPIUM/ALBUTEROL 0.5-3(2.5)MG/3ML NEB INH SCH ×7 (04:26→23:50)
[2018-05-15] MEDS: CEFTRIAXONE 2 G in DEXTROSE 5% WATER 50 ML IV SCH (07:16)
[2018-05-15 08:08] LABS: BASOPHILS % 0.5 % (0.0-2.0); EOSINOPHILS % 2.5 % (0.0-5.0); MEAN CORPUSCULAR HEMOGLOBIN 32.5 pg (28.0-32.0); MEAN CORPUSCULAR VOLUME 92.9 fL (80.0-94.0); MEAN PLATELET VOLUME 7.5 fl (7.4-10.4); MONOCYTES % 12.3 % (2.0-8.0); NEUTROPHILS % 53.7 % (40.0-76.0); PLATELET 158 x1000/uL (130-400); RED BLOOD CELL COUNT 2.06 mill/uL (4.7-6.1); RED CELL DISTRIBUTION WIDTH 16.7 % (11.6-14.6)
[2018-05-15 08:27] LABS: CHLORIDE 111 mEq/L (98-107)
[2018-05-15 08:32] LABS: HEMOGLOBIN. 6.7 g/dL (14.0-18.0)
[2018-05-15 08:33] LABS: HEMATOCRIT. 19.2 % (42.0-52.0)
[2018-05-15 08:44] LABS: PHOSPHORUS 2.8 mg/dL (2.5-4.9)
[2018-05-15] MEDS: PANTOPRAZOLE SODIUM 40 MG/VIAL IV SCH ×2 (08:48→20:34)
[2018-05-15] MEDS: RISPERIDONE 1MG TABLET GT SCH ×2 (08:49→20:34)
[2018-05-15] MEDS: THIAMINE HCL 100MG TABLET PO SCH (08:49)
[2018-05-15] MEDS: DOCUSATE SODIUM SUGAR FREE 100MG/10ML UDC NG SCH (08:53)
[2018-05-15] MEDS: SILVER SULFADIAZINE 1% CREAM 50GM TOP SCH ×2 (08:54→22:42)
[2018-05-15] MEDS ORDERED: POTASSIUM CHLORIDE 20MEQ/PACKET PEG NR ×2 (09:00→13:00)
[2018-05-15] MEDS: ACETAMINOPHEN 650MG/20.3ML UDC NG PRN (12:40)
[2018-05-15] MEDS: MICAFUNGIN 100 MG in SODIUM CHLORIDE 0.9% 100 ML IV SCH (15:20)
[2018-05-15] MEDS: DEXTROSE 5% WATER 1,000 ML IV SCH ×2 (20:15→22:42)
[2018-05-16] VITALS (13 sets, daily range): BP systolic 123–149; BP diastolic 69–89
[2018-05-16] MEDS: METOCLOPRAMIDE HCL 10MG/2ML VIAL IV SCH ×4 (00:09→19:06)
[2018-05-16] MEDS: SUCRALFATE 1 G/10 ML UDC GT SCH ×4 (00:09→19:06)
[2018-05-16] MEDS: IPRATROPIUM/ALBUTEROL 0.5-3(2.5)MG/3ML NEB INH SCH ×5 (03:51→20:16)
[2018-05-16] MEDS: CEFTRIAXONE 2 G in DEXTROSE 5% WATER 50 ML IV SCH (06:17)
[2018-05-16 07:11] LABS: BASOPHILS % 0.5 % (0.0-2.0); EOSINOPHILS % 3.1 % (0.0-5.0); HEMATOCRIT. 21.7 % (42.0-52.0); HEMOGLOBIN. 7.6 g/dL (14.0-18.0); LYMPHOCYTES % 28.3 % (20.0-50.0); MEAN CORPUSCULAR HEMOGLOBIN 32.4 pg (28.0-32.0); MEAN CORPUSCULAR VOLUME 92.7 fL (80.0-94.0); MEAN PLATELET VOLUME 7.5 fl (7.4-10.4); MONOCYTES % 11.1 % (2.0-8.0); PLATELET 174 x1000/uL (130-400); RED BLOOD CELL COUNT 2.34 mill/uL (4.7-6.1); RED CELL DISTRIBUTION WIDTH 15.8 % (11.6-14.6)
[2018-05-16 07:16] LABS: CHLORIDE 109 mEq/L (98-107)
[2018-05-16] MEDS: RISPERIDONE 1MG TABLET GT SCH ×2 (09:14→21:07)
[2018-05-16] MEDS: THIAMINE HCL 100MG TABLET PO SCH (09:14)
[2018-05-16] MEDS: PANTOPRAZOLE SODIUM 40 MG/VIAL IV SCH ×2 (09:14→21:08)
[2018-05-16] MEDS: DOCUSATE SODIUM SUGAR FREE 100MG/10ML UDC NG SCH (09:14)
[2018-05-16] MEDS: SILVER SULFADIAZINE 1% CREAM 50GM TOP SCH ×2 (09:16→21:07)
[2018-05-16] MEDS ORDERED: POTASSIUM CHLORIDE 20MEQ/PACKET GT NR (13:00)
[2018-05-16] MEDS: MICAFUNGIN 100 MG in SODIUM CHLORIDE 0.9% 100 ML IV SCH (13:32)
[2018-05-16] MEDS ORDERED: RISP1 GT (14:16)
[2018-05-16] MEDS ORDERED: DOCU50LI14 NG (14:16)
[2018-05-16] MEDS ORDERED: METO5VIA3 IV (14:16)
[2018-05-16] MEDS ORDERED: THIA100T72 PO (14:16)
[2018-05-16] MEDS ORDERED: PANT40VI IV (14:16)
[2018-05-16] MEDS: DEXTROSE 5% WATER 1,000 ML IV SCH (19:06)
[2018-05-17] MEDS ORDERED: VANCOMYCIN 1250MG in DEXTROSE 5% WATER 250ML IV SCH (08:00)
== END 2018-05-16 23:24 | DRG 4 ==
LOC: ER 21:22 → EDBEDREQ 23:39 → EDBEDREQTM 23:39 → ENRESERV 04-30 08:51 → MICUSO 04-30 08:51 → CANBEDREQ 05-01 07:30 → 5EST 05-13 18:00
PROVIDERS: ADMIT Internal Medicine; ATTEND Internal Medicine
PROC: 5A1955Z Respiratory Ventilation, Greater than 96 Consecutive Hours (ICD-10-PCS; 2018-04-30)
PROC: 0BH18EZ Insertion of Endotracheal Airway into Trachea, Via Natural or Artificial Opening Endoscopic (ICD-10-PCS; 2018-04-30)
PROC: 5A09357 Assistance with Respiratory Ventilation, Less than 24 Consecutive Hours, Continuous Positive Airway Pressure (ICD-10-PCS; 2018-04-30)
PROC: 02HV33Z Insertion of Infusion Device into Superior Vena Cava, Percutaneous Approach (ICD-10-PCS; 2018-05-01)
PROC: B548ZZA Ultrasonography of Superior Vena Cava, Guidance (ICD-10-PCS; 2018-05-01)
PROC: 30233N1 Transfusion of Nonautologous Red Blood Cells into Peripheral Vein, Percutaneous Approach (ICD-10-PCS; 2018-05-01)
PROC: 0B110F4 Bypass Trachea to Cutaneous with Tracheostomy Device, Open Approach (ICD-10-PCS; principal; 2018-05-09)
PROC: 0GBJ0ZZ Excision of Thyroid Gland Isthmus, Open Approach (ICD-10-PCS; 2018-05-09)
PROC: 0DH63UZ Insertion of Feeding Device into Stomach, Percutaneous Approach (ICD-10-PCS; 2018-05-11)
DX: A41.9 Sepsis, unspecified organism (principal); N17.0 Acute kidney failure with tubular necrosis; E43 Unspecified severe protein-calorie malnutrition; G93.41 Metabolic encephalopathy; I50.33 Acute on chronic diastolic (congestive) heart failure; J18.9 Pneumonia, unspecified organism; D61.818 Other pancytopenia; C79.51 Secondary malignant neoplasm of bone; K22.10 Ulcer of esophagus without bleeding; C90.00 Multiple myeloma not having achieved remission; E87.0 Hyperosmolality and hypernatremia; I13.0 Hypertensive heart and chronic kidney disease with heart failure and stage 1 through stage 4 chronic kidney disease, or unspecified chronic kidney disease; J96.01 Acute respiratory failure with hypoxia; J44.0 Chronic obstructive pulmonary disease with (acute) lower respiratory infection; E83.52 Hypercalcemia; E87.2 Acidosis; E87.6 Hypokalemia; F10.10 Alcohol abuse, uncomplicated; I49.3 Ventricular premature depolarization; J98.11 Atelectasis; K13.0 Diseases of lips; K29.70 Gastritis, unspecified, without bleeding; K56.41 Fecal impaction; N18.3 Chronic kidney disease, stage 3 (moderate); N40.0 Benign prostatic hyperplasia without lower urinary tract symptoms; G89.29 Other chronic pain; D63.8 Anemia in other chronic diseases classified elsewhere; D63.0 Anemia in neoplastic disease; L89.810 Pressure ulcer of head, unstageable; S50.311A Abrasion of right elbow, initial encounter; Z51.5 Encounter for palliative care; K57.30 Diverticulosis of large intestine without perforation or abscess without bleeding; Z66 Do not resuscitate; Z78.1 Physical restraint status; Z82.3 Family history of stroke; Z82.49 Family history of ischemic heart disease and other diseases of the circulatory system; Z83.3 Family history of diabetes mellitus; Z87.19 Personal history of other diseases of the digestive system; Z87.891 Personal history of nicotine dependence; Z87.81 Personal history of (healed) traumatic fracture; Z72.89 Other problems related to lifestyle; Z71.6 Tobacco abuse counseling; X58.XXXA Exposure to other specified factors, initial encounter; Y93.89 Activity, other specified; Y92.89 Other specified places as the place of occurrence of the external cause; Y99.8 Other external cause status
CPT/HCPCS: 36415; 36569; 36600; 71045; 71250; 74018; 76770; 76937; 78278; 80048; 80202; 82140; 82270; 82330; 82375; 82607; 82728; 82747; 82805; 83036; 83540; 83550; 83605; 83735; 83880; 84100; 84134; 84145; 84443; 84478; 84484; 85014; 85018; 85027; 85044; 85049; 85384; 86694; 86850; 86900; 86920; 87070; 87077; 87106; 87186; 87804; 93005; 93306; 93970; 94002; 94003; 94640; 94660; 96361; 96365; 97110; 97163; 97167; 97530; 99291; A6261; A9560; C1725; C9113; J0330; J0696; J1170; J1940; J2060; J2248; J2250; J2430; J2543; J2704; J2765; J3010; J3370; J3411; J3475; J3480; J3490; J7030; J7040; J7050; J7060; J7070; J7608; J7620; J7626; P9016; P9047; A4315

== ENCOUNTER 2018-06-12 04:06 | Inpatient (IN) | payer MEDICAID ==
[~2018-06-12] VITALS: Ht 170.2 cm; Wt 70.3 kg
[2018-06-12] VITALS (11 sets, daily range): BP systolic 120–151; BP diastolic 64–77
[~2018-06-12 04:06] MED LIST changes: +DOCU50LI14 NG; +METO5VIA3 IV; +PANT40VI IV; +RISP1 GT; +THIA100T72 PO
[2018-06-12] MEDS ORDERED: SODIUM CHLORIDE 0.9% 1,000 ML IV ONE (04:35)
[2018-06-12 05:15] LABS: CHLORIDE 95 mEq/L (98-107)
[2018-06-12 06:00] LABS: MEAN CORPUSCULAR HEMOGLOBIN 31.5 pg (28.0-32.0); RED CELL DISTRIBUTION WIDTH 16.2 % (11.6-14.6)
[2018-06-12 06:09] LABS: HEMOGLOBIN. 5.3 g/dL (14.0-18.0)
[2018-06-12 06:10] LABS: HEMATOCRIT. 16.7 % (42.0-52.0)
[2018-06-12 06:48] LABS: CLARITY URINE CLOUDY (CLEAR); COLOR URINE YELLOW (YELLOW); KETONES URINE NEGATIVE (NEGATIVE); LEUKOCYTE ESTERASE URINE TRACE (NEGATIVE); NITRITE URINE NEGATIVE (NEGATIVE); OCCULT BLOOD URINE NEGATIVE (NEGATIVE); PROTEIN URINE TRACE (NEGATIVE); SPECIFIC GRAVITY URINE 1.014 (1.005-1.030); UROBILINOGEN URINE 0.2 E.U./dL (0.2-1.0)
[2018-06-12 07:41] LABS: NUCLEATED RED BLOOD CELLS 3 /100 WBC
[2018-06-12 07:44] LABS: PLATELET ESTIMATE NORMAL
[2018-06-12 07:46] LABS: PLATELET 119 x1000/uL (130-400)
[2018-06-12] MEDS ORDERED: ACETAMINOPHEN 325MG SUPP ONE (11:35)
[2018-06-12] MEDS ORDERED: ACETAMINOPHEN 650MG SUPP PR ONE (12:30)
[2018-06-12] MEDS ORDERED: ONDANSETRON HCL 4MG/2ML INJ IV PRN (14:00)
[2018-06-12] MEDS ORDERED: PIPERACILLIN/TAZ 3.375G PREMIX 50 ML IV SCH (14:00)
[2018-06-12] MEDS ORDERED: IPRATROPIUM/ALBUTEROL 0.5-3(2.5)MG/3ML NEB HHN PRN (14:00)
[2018-06-12] MEDS ORDERED: PAMIDRONATE DISODIUM 90 MG in SODIUM CHLORIDE 0.9% 1,000 ML IV NR (15:00)
[2018-06-12] MEDS ORDERED: SODIUM CHLORIDE 0.9% 1,000 ML IV SCH (16:00)
[2018-06-12] MEDS ORDERED: VANCOMYCIN 1250MG in DEXTROSE 5% WATER 250ML IV SCH (16:00)
[2018-06-12] MEDS ORDERED: DEXT 5%/0.45% NACL 1000ML 1,000 ML IV SCH ×2 (16:00→16:45)
[2018-06-12] MEDS ORDERED: SORBITOL 70% SOLN 30ML PEG NR (16:00)
[2018-06-12] MEDS: PIPERACILLIN/TAZ 2.25G PREMIX 50 ML IV SCH ×2 (16:11→20:43)
[2018-06-12] MEDS ORDERED: BISACODYL 10MG SUPP PR NR (17:15)
[2018-06-12 17:23] LABS: BG BASE EXCESS 6.5 mmol/L (-2.0-2.0); BG CARBOXYHEMOGLOBIN 0.7 % (0.5-1.5); BG FRACTION INSPIRED OXYGEN 40; BG HCO3 ACT 29.8 mmol/L (22.0-26.0); BG METHEMOGLOBIN 0.4 % (0.0-1.5); BG OXYHEMOGLOBIN 95.9 % (94.0-97.0); BG PCO2 37.4 mmHg (35.0-45.0); BG PH 7.519 (7.350-7.450); BG SAMPLE SITE RIGHT RADIAL; BG TIDAL VOLUME(mL) 500 mL; BG TOTAL HEMOGLOBIN 8.5 g/dL (12.0-18.0); BG VENT MODE VENT - A/C; BG VENT RATE 16 set
[2018-06-12 17:48] LABS: TOTAL IRON BINDING CAPACITY 103 ug/dL (250-450)
[2018-06-12] MEDS: SODIUM CHLORIDE 0.9% 1,000 ML IV SCH ×2 (19:01→23:40)
[2018-06-12] MEDS: PANTOPRAZOLE SODIUM 40 MG/VIAL IV SCH (19:26)
[2018-06-12] MEDS: IPRATROPIUM/ALBUTEROL 0.5-3(2.5)MG/3ML NEB HHN SCH (19:55)
[2018-06-12] MEDS ORDERED: LORAZEPAM 2MG/ML CPJ IV PRN (22:00)
[2018-06-12] MEDS: MORPHINE SULFATE 4 MG/ML CPJ (NOT FOR IM USE) IV PRN (22:22)
[2018-06-13] VITALS (80 sets, daily range): BP systolic 93–177; BP diastolic 44–92
[2018-06-13] MEDS: ACETAMINOPHEN 325MG TABLET PO PRN ×3 (00:40→15:42)
[2018-06-13 01:04] LABS: HEMOGLOBIN 6.9 g/dL (14.0-18.0)
[2018-06-13 01:05] LABS: HEMATOCRIT 20.1 % (42.0-52.0)
[2018-06-13 01:08] LABS: D-DIMER 1.58 mg/L FEU (<0.50); INR 1.5; PARTIAL THROMBOPLASTIN TIME 60.7 sec (23.4-31.0); PROTHROMBIN TIME 14.7 sec (9.1-11.1)
[2018-06-13] MEDS: IPRATROPIUM/ALBUTEROL 0.5-3(2.5)MG/3ML NEB HHN SCH ×4 (01:46→21:34)
[2018-06-13] MEDS: PIPERACILLIN/TAZ 2.25G PREMIX 50 ML IV SCH ×4 (03:06→21:16)
[2018-06-13] MEDS: SODIUM CHLORIDE 0.9% 1,000 ML IV SCH (06:22)
[2018-06-13 07:46] LABS: BG BASE EXCESS 3.5 mmol/L (-2.0-2.0); BG CARBOXYHEMOGLOBIN 0.6 % (0.5-1.5); BG DEOXYHEMOGLOBIN 3.6 % (0.0-5.0); BG FRACTION INSPIRED OXYGEN 40; BG HCO3 ACT 26.8 mmol/L (22.0-26.0); BG METHEMOGLOBIN 0.2 % (0.0-1.5); BG OXYGEN SATURATION 96.4 % (92.0-98.5); BG OXYHEMOGLOBIN 95.6 % (94.0-97.0); BG PCO2 35.2 mmHg (35.0-45.0); BG PO2 87.6 mmHg (75.0-100.0); BG SAMPLE SITE LEFT BRACHIAL; BG TIDAL VOLUME(mL) 500 mL; BG TOTAL HEMOGLOBIN 8.4 g/dL (12.0-18.0); BG VENT MODE VENT - A/C; BG VENT RATE 16 set
[2018-06-13] MEDS: PANTOPRAZOLE SODIUM 40 MG/VIAL IV SCH (09:35)
[2018-06-13 10:46] LABS: HEMATOCRIT. 21.6 % (42.0-52.0); HEMOGLOBIN. 7.3 g/dL (14.0-18.0); MEAN CORPUSCULAR HEMOGLOBIN 31.2 pg (28.0-32.0); MEAN PLATELET VOLUME 7.7 fl (7.4-10.4); PLATELET 108 x1000/uL (130-400); RED BLOOD CELL COUNT 2.35 mill/uL (4.7-6.1); RED CELL DISTRIBUTION WIDTH 17.4 % (11.6-14.6)
[2018-06-13 10:52] LABS: INR 1.6; PROTHROMBIN TIME 15.6 sec (9.1-11.1)
[2018-06-13 11:04] LABS: CHLORIDE 109 mEq/L (98-107)
[2018-06-13 11:09] LABS: PHOSPHORUS 5.8 mg/dL (2.5-4.9)
[2018-06-13 11:13] LABS: T4 FREE 1.24 ng/dL (0.76-1.46)
[2018-06-13 11:32] LABS: NUCLEATED RED BLOOD CELLS 1 /100 WBC; PLATELET ESTIMATE DECREASED
[2018-06-13 13:08] LABS: FOLIC ACID (FOLATE) SERUM >20 ng/mL ng/mL (>5.38)
[2018-06-13] MEDS: DEXT 5%/0.45% NACL 1000ML 1,000 ML IV SCH ×2 (13:45→21:17)
[2018-06-13 14:32] LABS: VITAMIN B12 SERUM 696 pg/mL (211-911)
[2018-06-13] MEDS ORDERED: VANCOMYCIN 1250MG in DEXTROSE 5% WATER 250ML IV NR (16:00)
[2018-06-13 21:05] LABS: HEMATOCRIT 24.9 % (42.0-52.0); HEMOGLOBIN 8.5 g/dL (14.0-18.0)
[2018-06-14] VITALS (42 sets, daily range): BP systolic 114–179; BP diastolic 63–102
[2018-06-14] MEDS: PIPERACILLIN/TAZ 2.25G PREMIX 50 ML IV SCH ×4 (02:26→21:12)
[2018-06-14] MEDS: IPRATROPIUM/ALBUTEROL 0.5-3(2.5)MG/3ML NEB HHN SCH ×5 (02:54→20:01)
[2018-06-14] MEDS: DEXT 5%/0.45% NACL 1000ML 1,000 ML IV SCH (05:50)
[2018-06-14 07:09] LABS: HEMATOCRIT. 24.7 % (42.0-52.0); HEMOGLOBIN. 8.5 g/dL (14.0-18.0); MEAN CORPUSCULAR HEMOGLOBIN 31.9 pg (28.0-32.0); MEAN CORPUSCULAR VOLUME 92.6 fL (80.0-94.0); MEAN PLATELET VOLUME 8.1 fl (7.4-10.4); PLATELET 115 x1000/uL (130-400); RED BLOOD CELL COUNT 2.66 mill/uL (4.7-6.1)
[2018-06-14 07:40] LABS: PHOSPHORUS 4.2 mg/dL (2.5-4.9)
[2018-06-14 08:34] LABS: BG BASE EXCESS 2.7 mmol/L (-2.0-2.0); BG CARBOXYHEMOGLOBIN 0.1 % (0.5-1.5); BG DEOXYHEMOGLOBIN 1.4 % (0.0-5.0); BG FRACTION INSPIRED OXYGEN 40; BG HCO3 ACT 26.7 mmol/L (22.0-26.0); BG METHEMOGLOBIN 0.2 % (0.0-1.5); BG OXYGEN SATURATION 98.6 % (92.0-98.5); BG OXYHEMOGLOBIN 98.3 % (94.0-97.0); BG PCO2 38.6 mmHg (35.0-45.0); BG PH 7.457 (7.350-7.450); BG PO2 138.1 mmHg (75.0-100.0); BG SAMPLE SITE LEFT BRACHIAL; BG TIDAL VOLUME(mL) 500 mL; BG TOTAL HEMOGLOBIN 9.5 g/dL (12.0-18.0); BG VENT MODE VENT - A/C; BG VENT RATE 12 set
[2018-06-14 08:58] LABS: PLATELET ESTIMATE SLIGHTLY DECREASED
[2018-06-14] MEDS: ACETAMINOPHEN 325MG TABLET PO PRN (09:34)
[2018-06-14] MEDS: DEXT 5%/0.2% NACL 1,000 ML IV SCH ×2 (09:43→19:04)
[2018-06-14] MEDS ORDERED: POTASSIUM CHLORIDE INJ 40 MEQ in DEXT 5% WATER 250 ML IV NR (10:30)
[2018-06-14] MEDS: METOCLOPRAMIDE HCL 10MG/2ML VIAL IV SCH ×2 (15:29→18:47)
[2018-06-14] MEDS ORDERED: POTASSIUM CHLORIDE INJ 40 MEQ in DEXT 5% WATER 500 ML IV SCH (16:00)
[2018-06-14] MEDS: ACETYLCYSTEINE 100MG/ML 10% VIAL 4ML INH SCH (16:07)
[2018-06-15] VITALS (29 sets, daily range): BP systolic 123–158; BP diastolic 57–92
[2018-06-15] MEDS: METOCLOPRAMIDE HCL 10MG/2ML VIAL IV SCH ×3 (00:01→12:00)
[2018-06-15] MEDS: IPRATROPIUM/ALBUTEROL 0.5-3(2.5)MG/3ML NEB HHN SCH ×6 (00:39→20:34)
[2018-06-15] MEDS: ACETYLCYSTEINE 100MG/ML 10% VIAL 4ML INH SCH ×3 (00:39→15:20)
[2018-06-15] MEDS: DEXT 5%/0.2% NACL 1,000 ML IV SCH (03:42)
[2018-06-15] MEDS: PIPERACILLIN/TAZ 2.25G PREMIX 50 ML IV SCH ×4 (03:42→21:30)
[2018-06-15 06:24] LABS: HEMOGLOBIN. 7.6 g/dL (14.0-18.0); MEAN CORPUSCULAR VOLUME 93.1 fL (80.0-94.0); MEAN PLATELET VOLUME 7.8 fl (7.4-10.4); PLATELET 110 x1000/uL (130-400); RED BLOOD CELL COUNT 2.47 mill/uL (4.7-6.1); RED CELL DISTRIBUTION WIDTH 17.2 % (11.6-14.6)
[2018-06-15 06:59] LABS: PHOSPHORUS 3.1 mg/dL (2.5-4.9)
[2018-06-15] MEDS: PANTOPRAZOLE 40MG DR TABLET PO SCH (08:21)
[2018-06-15 08:38] LABS: NUCLEATED RED BLOOD CELLS 2 /100 WBC
[2018-06-15 08:39] LABS: PLATELET ESTIMATE SLIGHTLY DECREASED
[2018-06-15] MEDS ORDERED: POTASSIUM CHLORIDE INJ 40 MEQ in DEXT 5% WATER 250 ML IV NR (10:30)
[2018-06-15] MEDS ORDERED: DOCUSATE SODIUM 250MG CAPSULE PO SCH (11:15)
[2018-06-15] MEDS ORDERED: LACTULOSE 20G/30ML UDC PO NR (11:15)
[2018-06-15] MEDS ORDERED: POTASSIUM CHLORIDE 20MEQ TABLET SR PO NR (11:15)
[2018-06-15] MEDS ORDERED: LACTULOSE 20G/30ML UDC PO PRN (11:15)
[2018-06-15] MEDS: DEXT 5% WATER + KCL 20MEQ/L 1,000 ML IV SCH (14:52)
[2018-06-15] MEDS ORDERED: VANCOMYCIN 1 G PREMIX 200 ML IV SCH (15:00)
[2018-06-15] MEDS ORDERED: NA PHOS,M-B/NA PHOS,DI-BA ENEMA 118ML PR PRN (16:15)
[2018-06-16] VITALS (12 sets, daily range): BP systolic 116–169; BP diastolic 66–97
[2018-06-16] MEDS: ACETYLCYSTEINE 100MG/ML 10% VIAL 4ML INH SCH ×3 (00:01→15:30)
[2018-06-16] MEDS: IPRATROPIUM/ALBUTEROL 0.5-3(2.5)MG/3ML NEB HHN SCH ×6 (00:37→20:13)
[2018-06-16] MEDS: PIPERACILLIN/TAZ 2.25G PREMIX 50 ML IV SCH ×4 (02:55→20:50)
[2018-06-16] MEDS: DEXT 5% WATER + KCL 20MEQ/L 1,000 ML IV SCH ×3 (04:51→19:45)
[2018-06-16] MEDS: METOCLOPRAMIDE HCL 10MG/2ML VIAL IV SCH ×4 (05:53→17:10)
[2018-06-16 06:11] LABS: HEMATOCRIT. 25.3 % (42.0-52.0); HEMOGLOBIN. 8.6 g/dL (14.0-18.0); MEAN CORPUSCULAR HEMOGLOBIN 31.7 pg (28.0-32.0); MEAN CORPUSCULAR VOLUME 93.2 fL (80.0-94.0); MEAN PLATELET VOLUME 7.6 fl (7.4-10.4); PLATELET 118 x1000/uL (130-400); RED BLOOD CELL COUNT 2.72 mill/uL (4.7-6.1); RED CELL DISTRIBUTION WIDTH 16.4 % (11.6-14.6)
[2018-06-16 08:21] LABS: PHOSPHORUS 2.7 mg/dL (2.5-4.9)
[2018-06-16] MEDS: PANTOPRAZOLE 40MG DR TABLET PO SCH (08:56)
[2018-06-16] MEDS: DOCUSATE SODIUM SUGAR FREE 100MG/10ML UDC PEG SCH (10:39)
[2018-06-16 11:58] LABS: ATYPICAL LYMPHOCYTES 3; NUCLEATED RED BLOOD CELLS 2 /100 WBC
[2018-06-16 11:59] LABS: PLATELET ESTIMATE SLIGHTLY DECREASED
[2018-06-16] MEDS ORDERED: FUROSEMIDE 20MG/2ML VIAL IVP SCH (12:45)
[2018-06-16] MEDS: VANCOMYCIN 750 MG PREMIX 150 ML IV SCH (14:22)
[2018-06-17] VITALS (12 sets, daily range): BP systolic 103–178; BP diastolic 59–150
[2018-06-17] MEDS: IPRATROPIUM/ALBUTEROL 0.5-3(2.5)MG/3ML NEB HHN SCH ×3 (00:11→07:17)
[2018-06-17] MEDS: ACETYLCYSTEINE 100MG/ML 10% VIAL 4ML INH SCH ×3 (00:12→15:21)
[2018-06-17] MEDS: METOCLOPRAMIDE HCL 10MG/2ML VIAL IV SCH ×4 (00:36→17:51)
[2018-06-17] MEDS: PIPERACILLIN/TAZ 2.25G PREMIX 50 ML IV SCH ×3 (03:52→15:57)
[2018-06-17] MEDS: DEXT 5% WATER + KCL 20MEQ/L 1,000 ML IV SCH (06:39)
[2018-06-17 06:40] LABS: HEMOGLOBIN. 8.6 g/dL (14.0-18.0); MEAN PLATELET VOLUME 7.8 fl (7.4-10.4); PLATELET 116 x1000/uL (130-400); RED BLOOD CELL COUNT 2.69 mill/uL (4.7-6.1); RED CELL DISTRIBUTION WIDTH 16.2 % (11.6-14.6)
[2018-06-17 06:47] LABS: PHOSPHORUS 2.1 mg/dL (2.5-4.9)
[2018-06-17] MEDS ORDERED: POTASSIUM CHLORIDE 20MEQ/PACKET PEG SCH (08:00)
[2018-06-17] MEDS: PANTOPRAZOLE 40MG DR TABLET PO SCH (08:14)
[2018-06-17] MEDS: DOCUSATE SODIUM SUGAR FREE 100MG/10ML UDC PEG SCH (08:17)
[2018-06-17] MEDS ORDERED: POTASSIUM CHLORIDE INJ 40 MEQ in DEXT 5% WATER 250 ML IV SCH (09:00)
[2018-06-17 13:34] LABS: NUCLEATED RED BLOOD CELLS 4 /100 WBC
[2018-06-17 13:35] LABS: PLATELET ESTIMATE DECREASED
[2018-06-17] MEDS: VANCOMYCIN 750 MG PREMIX 150 ML IV SCH (14:18)
[2018-06-17] MEDS: MORPHINE SULFATE 4 MG/ML CPJ (NOT FOR IM USE) IV PRN (15:58)
[2018-06-17] MEDS ORDERED: IPRATROPIUM/ALBUTEROL 0.5-3(2.5)MG/3ML NEB HHN SCH (18:00)
== END 2018-06-17 20:55 | DRG 720 ==
LOC: ER 04:06 → 5EST 05:33 → ENRESERV 10:25 → CVICU 23:45 → 5EST 06-15 23:08
PROVIDERS: ADMIT Internal Medicine; ATTEND Internal Medicine
PROC: 5A1955Z Respiratory Ventilation, Greater than 96 Consecutive Hours (ICD-10-PCS; principal; 2018-06-12)
PROC: 30233N1 Transfusion of Nonautologous Red Blood Cells into Peripheral Vein, Percutaneous Approach (ICD-10-PCS; 2018-06-12)
PROC: 4A00X4Z Measurement of Central Nervous Electrical Activity, External Approach (ICD-10-PCS; 2018-06-14)
DX: A41.9 Sepsis, unspecified organism (principal); J96.20 Acute and chronic respiratory failure, unspecified whether with hypoxia or hypercapnia; G92 Toxic encephalopathy; R65.21 Severe sepsis with septic shock; E43 Unspecified severe protein-calorie malnutrition; Z99.11 Dependence on respirator [ventilator] status; J18.9 Pneumonia, unspecified organism; L89.313 Pressure ulcer of right buttock, stage 3; L89.319 Pressure ulcer of right buttock, unspecified stage; L89.322 Pressure ulcer of left buttock, stage 2; N17.9 Acute kidney failure, unspecified; Z93.0 Tracheostomy status; C90.00 Multiple myeloma not having achieved remission; D69.6 Thrombocytopenia, unspecified; D53.9 Nutritional anemia, unspecified; E83.52 Hypercalcemia; N40.0 Benign prostatic hyperplasia without lower urinary tract symptoms; I50.32 Chronic diastolic (congestive) heart failure; I13.0 Hypertensive heart and chronic kidney disease with heart failure and stage 1 through stage 4 chronic kidney disease, or unspecified chronic kidney disease; E87.8 Other disorders of electrolyte and fluid balance, not elsewhere classified; K22.10 Ulcer of esophagus without bleeding; K21.9 Gastro-esophageal reflux disease without esophagitis; K29.70 Gastritis, unspecified, without bleeding; N18.9 Chronic kidney disease, unspecified; Z66 Do not resuscitate; Z82.3 Family history of stroke; Z82.49 Family history of ischemic heart disease and other diseases of the circulatory system; Z83.3 Family history of diabetes mellitus; Z87.19 Personal history of other diseases of the digestive system; Z87.891 Personal history of nicotine dependence; Z93.1 Gastrostomy status; N39.0 Urinary tract infection, site not specified; E87.1 Hypo-osmolality and hyponatremia; E87.6 Hypokalemia
CPT/HCPCS: 36415; 36600; 70551; 71045; 71250; 74018; 76770; 80048; 80202; 82140; 82330; 82375; 82607; 82728; 82746; 82805; 82962; 83036; 83540; 83550; 83605; 83735; 84100; 84134; 84145; 84439; 84443; 84481; 85014; 85018; 85379; 85384; 86850; 86900; 86920; 87070; 93005; 93970; 94002; 94003; 94640; 99285; A6261; C9113; J1940; J2060; J2270; J2430; J2543; J2765; J3370; J3480; J7030; J7040; J7050; J7060; J7608; J7620; P9016; A4315

== ENCOUNTER 2018-06-20 09:00 | Inpatient (IN) | payer MEDICAID ==
[~2018-06-20] VITALS: Ht 188 cm; Wt 63.5 kg
[2018-06-20] MEDS ORDERED: SODIUM CHLORIDE 0.9% 1,000 ML IV ONE (09:22)
[2018-06-20 10:21] LABS: BASOPHILS % 0.4 % (0.0-2.0); EOSINOPHILS % 1.1 % (0.0-5.0); HEMATOCRIT. 23.1 % (42.0-52.0); HEMOGLOBIN. 7.5 g/dL (14.0-18.0); LYMPHOCYTES % 29.3 % (20.0-50.0); MEAN CORPUSCULAR HEMOGLOBIN 30.7 pg (28.0-32.0); MEAN CORPUSCULAR VOLUME 94.4 fL (80.0-94.0); MEAN PLATELET VOLUME 8.2 fl (7.4-10.4); NEUTROPHILS % 65.2 % (40.0-76.0); PLATELET 174 x1000/uL (130-400); RED BLOOD CELL COUNT 2.44 mill/uL (4.7-6.1); RED CELL DISTRIBUTION WIDTH 15.4 % (11.6-14.6)
[2018-06-20 10:24] LABS: CHLORIDE 108 mEq/L (98-107); INR 1.4; PROTHROMBIN TIME 14.2 sec (9.1-11.1)
[2018-06-20 14:53] LABS: CLARITY URINE TURBID (CLEAR); COLOR URINE RED (YELLOW); KETONES URINE NEGATIVE (NEGATIVE); LEUKOCYTE ESTERASE URINE 2+ (NEGATIVE); NITRITE URINE NEGATIVE (NEGATIVE); OCCULT BLOOD URINE 3+ (NEGATIVE); PH URINE 5.5 (4.5-8.0); PROTEIN URINE 2+ (NEGATIVE); SPECIFIC GRAVITY URINE 1.015 (1.005-1.030); UROBILINOGEN URINE 0.2 E.U./dL (0.2-1.0)
[2018-06-20] MEDS: SODIUM CHLORIDE 0.9% 1,000 ML IV SCH (15:00)
[2018-06-20] MEDS: LORAZEPAM 2MG/ML CPJ IV PRN ×2 (15:15→21:34)
[2018-06-20] MEDS ORDERED: PIPERACILLIN/TAZ 3.375G PREMIX 50 ML IV NR (15:15)
[2018-06-20] MEDS ORDERED: METHYLPREDNISOLONE SOD SUCC 40 MG/ML VIAL IV NR (15:15)
[2018-06-20] MEDS ORDERED: PANTOPRAZOLE 80 MG in SODIUM CHLORIDE 0.9% 100 ML IV NR (16:45)
[2018-06-20] MEDS ORDERED: MORPHINE SULFATE 4 MG/ML CPJ (NOT FOR IM USE) IV NR (17:15)
[2018-06-20] MEDS: ONDANSETRON HCL 4MG/2ML INJ IV PRN (17:36)
[2018-06-20 19:55] LABS: BASOPHILS % 0.2 % (0.0-2.0); EOSINOPHILS % 0.4 % (0.0-5.0); LYMPHOCYTES % 13.3 % (20.0-50.0); MEAN CORPUSCULAR HEMOGLOBIN 31.6 pg (28.0-32.0); MEAN CORPUSCULAR VOLUME 92.2 fL (80.0-94.0); MEAN PLATELET VOLUME 7.9 fl (7.4-10.4); MONOCYTES % 5.2 % (2.0-8.0); NEUTROPHILS % 80.9 % (40.0-76.0); PLATELET 132 x1000/uL (130-400); RED CELL DISTRIBUTION WIDTH 14.9 % (11.6-14.6)
[2018-06-20 19:57] LABS: HEMATOCRIT. 20.2 % (42.0-52.0); HEMOGLOBIN. 6.9 g/dL (14.0-18.0)
[2018-06-20] MEDS ORDERED: METHYLPREDNISOLONE SOD SUCC 125 MG/2 ML VIAL IV SCH (22:00)
[2018-06-20] MEDS: PIPERACILLIN/TAZ 3.375G PREMIX 50 ML IV SCH (22:30)
[2018-06-20] MEDS ORDERED: METHYLPREDNISOLONE SOD SUCC 40 MG/ML VIAL IV SCH (22:30)
[2018-06-21] MEDS: SODIUM CHLORIDE 0.9% 1,000 ML IV SCH (01:16)
[2018-06-21] MEDS: LORAZEPAM 2MG/ML CPJ IV PRN (02:16)
[2018-06-21] MEDS ORDERED: MORPHINE SULFATE 4 MG/ML CPJ (NOT FOR IM USE) IV PRN (02:30)
[2018-06-21] MEDS ORDERED: PIPERACILLIN/TAZ 3.375G PREMIX 50 ML IV NR (04:30)
[2018-06-21] MEDS: PIPERACILLIN/TAZ 3.375G PREMIX 50 ML IV SCH ×2 (04:55→18:10)
[2018-06-21 05:18] LABS: HEMATOCRIT 19.2 % (42.0-52.0); HEMOGLOBIN 6.5 g/dL (14.0-18.0)
[2018-06-21 06:34] LABS: BASOPHILS % 0.2 % (0.0-2.0); CHLORIDE 120 mEq/L (98-107); EOSINOPHILS % 0.3 % (0.0-5.0); LYMPHOCYTES % 15.2 % (20.0-50.0); MEAN CORPUSCULAR HEMOGLOBIN 31.6 pg (28.0-32.0); MEAN PLATELET VOLUME 8.1 fl (7.4-10.4); MONOCYTES % 7.7 % (2.0-8.0); NEUTROPHILS % 76.6 % (40.0-76.0); PLATELET 135 x1000/uL (130-400); RED BLOOD CELL COUNT 1.97 mill/uL (4.7-6.1); RED CELL DISTRIBUTION WIDTH 15.2 % (11.6-14.6)
[2018-06-21 06:51] LABS: HEMATOCRIT. 18.3 % (42.0-52.0); HEMOGLOBIN. 6.2 g/dL (14.0-18.0)
[2018-06-21] MEDS: ACETAMINOPHEN 325MG TABLET PEG PRN (07:06)
[2018-06-21] MEDS ORDERED: DEXTROSE 50% WATER 50ML SYRINGE IV PRN (15:30)
[2018-06-21 15:32] VITALS: BP 136/74
[2018-06-21 16:00] VITALS: BP 141/68
[2018-06-21 16:22] LABS: BASOPHILS % 0.2 % (0.0-2.0); EOSINOPHILS % 0.7 % (0.0-5.0); HEMATOCRIT. 21.3 % (42.0-52.0); HEMOGLOBIN. 7.3 g/dL (14.0-18.0); LYMPHOCYTES % 15.5 % (20.0-50.0); MEAN CORPUSCULAR HEMOGLOBIN 30.5 pg (28.0-32.0); MEAN CORPUSCULAR VOLUME 89.5 fL (80.0-94.0); MEAN PLATELET VOLUME 7.8 fl (7.4-10.4); MONOCYTES % 6.2 % (2.0-8.0); NEUTROPHILS % 77.4 % (40.0-76.0); PLATELET 130 x1000/uL (130-400); RED BLOOD CELL COUNT 2.38 mill/uL (4.7-6.1); RED CELL DISTRIBUTION WIDTH 16.1 % (11.6-14.6)
[2018-06-21 16:36] LABS: CHLORIDE 122 mEq/L (98-107)
[2018-06-21] MEDS: DEXT 5%/0.45% NACL 1000ML 1,000 ML IV SCH (16:46)
[2018-06-21] MEDS ORDERED: PANTOPRAZOLE 80 MG in SODIUM CHLORIDE 0.9% 100 ML IV SCH (17:00)
[2018-06-21] MEDS ORDERED: PHYTONADIONE 10MG/ML AMP SUBCUT NR (17:30)
[2018-06-21] MEDS ORDERED: BLOOD SUGAR DIAGNOSTIC STRIP TEST SCH (17:30)
[2018-06-21 18:00] VITALS: BP 140/74
[2018-06-21] MEDS ORDERED: INSULIN LISPRO 100 UNITS/ML SUBCUT SCH (18:00)
[2018-06-21 19:51] LABS: HEPATITIS B SURFACE ANTIGEN NEGATIVE
[2018-06-21 20:00] VITALS: BP 160/73
[2018-06-21] MEDS ORDERED: VANCOMYCIN 1250MG in DEXTROSE 5% WATER 250ML IV SCH (20:00)
[2018-06-21 20:21] LABS: HEPATITIS A AB IGM NEGATIVE (NEGATIVE)
[2018-06-21] MEDS: IPRATROPIUM/ALBUTEROL 0.5-3(2.5)MG/3ML NEB HHN SCH (20:37)
[2018-06-21] MEDS: PANTOPRAZOLE 80 MG in SODIUM CHLORIDE 0.9% 100 ML IV SCH (20:49)
[2018-06-21 22:00] VITALS: BP 172/70
[2018-06-21] MEDS ORDERED: POTASSIUM CHLORIDE INJ 40 MEQ in DEXT 5% WATER 250 ML IV SCH (22:30)
[2018-06-21 23:28] LABS: HEMOGLOBIN 7.1 g/dL (14.0-18.0); MEAN CORPUSCULAR HEMOGLOBIN 30.8 pg (28.0-32.0); MEAN CORPUSCULAR VOLUME 90.9 fL (80.0-94.0); PLATELET 133 x1000/uL (130-400); RED CELL DISTRIBUTION WIDTH 16.2 % (11.6-14.6)
[2018-06-21 23:43] LABS: HEMATOCRIT 20.9 % (42.0-52.0)
[2018-06-21] MEDS: METHYLPREDNISOLONE SOD SUCC 40 MG/ML VIAL IV SCH (23:46)
[2018-06-22] VITALS (17 sets, daily range): BP systolic 113–157; BP diastolic 71–91
[2018-06-22] MEDS: PIPERACILLIN/TAZ 3.375G PREMIX 50 ML IV SCH ×5 (00:21→23:33)
[2018-06-22] MEDS: BLOOD SUGAR DIAGNOSTIC STRIP TEST SCH ×5 (00:29→23:27)
[2018-06-22] MEDS: LORAZEPAM 2MG/ML CPJ IV PRN (00:53)
[2018-06-22 02:01] LABS: MEAN CORPUSCULAR HEMOGLOBIN 30.5 pg (28.0-32.0); MEAN CORPUSCULAR VOLUME 90.6 fL (80.0-94.0); PLATELET 127 x1000/uL (130-400); RED BLOOD CELL COUNT 2.29 mill/uL (4.7-6.1); RED CELL DISTRIBUTION WIDTH 16.2 % (11.6-14.6)
[2018-06-22 02:06] LABS: HEMATOCRIT 20.8 % (42.0-52.0)
[2018-06-22] MEDS: IPRATROPIUM/ALBUTEROL 0.5-3(2.5)MG/3ML NEB HHN SCH ×3 (04:00→20:28)
[2018-06-22] MEDS: METHYLPREDNISOLONE SOD SUCC 40 MG/ML VIAL IV SCH ×3 (06:03→21:08)
[2018-06-22] MEDS: DEXT 5%/0.45% NACL 1000ML 1,000 ML IV SCH ×2 (06:04→21:09)
[2018-06-22] MEDS: PANTOPRAZOLE 80 MG in SODIUM CHLORIDE 0.9% 100 ML IV SCH ×2 (06:05→18:48)
[2018-06-22] MEDS: INSULIN LISPRO 100 UNITS/ML SUBCUT SCH ×5 (06:05→23:34)
[2018-06-22 06:56] LABS: INR 1.3; PARTIAL THROMBOPLASTIN TIME 39.8 sec (23.4-31.0); PROTHROMBIN TIME 13.5 sec (9.1-11.1)
[2018-06-22 06:57] LABS: BASOPHILS % 0.3 % (0.0-2.0); EOSINOPHILS % 0.4 % (0.0-5.0); MEAN CORPUSCULAR HEMOGLOBIN 30.7 pg (28.0-32.0); MEAN CORPUSCULAR VOLUME 91.1 fL (80.0-94.0); MONOCYTES % 4.9 % (2.0-8.0); NEUTROPHILS % 78.4 % (40.0-76.0); PLATELET 131 x1000/uL (130-400); RED BLOOD CELL COUNT 2.24 mill/uL (4.7-6.1); RED CELL DISTRIBUTION WIDTH 16.3 % (11.6-14.6)
[2018-06-22 07:16] LABS: CHLORIDE 125 mEq/L (98-107)
[2018-06-22 07:50] LABS: HEMATOCRIT. 20.4 % (42.0-52.0); HEMOGLOBIN. 6.9 g/dL (14.0-18.0)
[2018-06-22] MEDS: VANCOMYCIN 1 G PREMIX 200 ML IV SCH ×2 (08:51→21:08)
[2018-06-22] MEDS ORDERED: SODIUM CHLORIDE 0.9% 10ML VIAL ONE (13:43)
[2018-06-22 13:49] LABS: MEAN CORPUSCULAR HEMOGLOBIN 31.1 pg (28.0-32.0); MEAN CORPUSCULAR VOLUME 91.6 fL (80.0-94.0); PLATELET 124 x1000/uL (130-400); RED BLOOD CELL COUNT 2.11 mill/uL (4.7-6.1); RED CELL DISTRIBUTION WIDTH 16.2 % (11.6-14.6)
[2018-06-22 14:07] LABS: HEMATOCRIT 19.3 % (42.0-52.0); HEMOGLOBIN 6.6 g/dL (14.0-18.0)
[2018-06-22] MEDS ORDERED: MIDAZOLAM HCL 5 MG/5 ML VIAL ONE (15:58)
[2018-06-22] MEDS ORDERED: SIMETHICONE 40 MG/0.6 ML 30ML ONE (15:58)
[2018-06-22] MEDS ORDERED: FENTANYL CITRATE/PF 50MCG/ML 2ML VIAL ONE (15:59)
[2018-06-22] MEDS ORDERED: MIDAZOLAM HCL 2 MG/2 ML VIAL IV PRN (16:26)
[2018-06-22 18:40] LABS: HEMATOCRIT 22.2 % (42.0-52.0); HEMOGLOBIN 7.6 g/dL (14.0-18.0); MEAN CORPUSCULAR HEMOGLOBIN 30.6 pg (28.0-32.0); MEAN CORPUSCULAR VOLUME 89.2 fL (80.0-94.0); PLATELET 117 x1000/uL (130-400); RED BLOOD CELL COUNT 2.49 mill/uL (4.7-6.1); RED CELL DISTRIBUTION WIDTH 17.5 % (11.6-14.6)
[2018-06-22 18:45] LABS: INR 1.4
[2018-06-23] VITALS (12 sets, daily range): BP systolic 120–155; BP diastolic 69–90
[2018-06-23] MEDS: IPRATROPIUM/ALBUTEROL 0.5-3(2.5)MG/3ML NEB HHN SCH ×5 (01:43→21:27)
[2018-06-23] MEDS: PANTOPRAZOLE 80 MG in SODIUM CHLORIDE 0.9% 100 ML IV SCH ×3 (02:33→21:59)
[2018-06-23 04:15] LABS: HIV SCREEN 4G Non Reactive (Non Reactive)
[2018-06-23 04:15] LABS: HEMATOCRIT 22.4 % (42.0-52.0); HEMOGLOBIN 7.6 g/dL (14.0-18.0); MEAN CORPUSCULAR HEMOGLOBIN 30.3 pg (28.0-32.0); MEAN CORPUSCULAR VOLUME 89.4 fL (80.0-94.0); PLATELET 110 x1000/uL (130-400); RED CELL DISTRIBUTION WIDTH 17.8 % (11.6-14.6)
[2018-06-23] MEDS: METHYLPREDNISOLONE SOD SUCC 40 MG/ML VIAL IV SCH ×3 (05:10→21:02)
[2018-06-23] MEDS: PIPERACILLIN/TAZ 3.375G PREMIX 50 ML IV SCH ×4 (05:10→23:30)
[2018-06-23] MEDS: BLOOD SUGAR DIAGNOSTIC STRIP TEST SCH ×4 (05:20→23:19)
[2018-06-23] MEDS: INSULIN LISPRO 100 UNITS/ML SUBCUT SCH ×4 (05:23→23:37)
[2018-06-23] MEDS: VANCOMYCIN 1 G PREMIX 200 ML IV SCH (08:06)
[2018-06-23] MEDS: DEXT 5%/0.45% NACL 1000ML 1,000 ML IV SCH ×2 (08:06→21:02)
[2018-06-23 12:45] LABS: HEMATOCRIT 23.8 % (42.0-52.0); HEMOGLOBIN 8.1 g/dL (14.0-18.0); MEAN CORPUSCULAR HEMOGLOBIN 30.6 pg (28.0-32.0); MEAN CORPUSCULAR VOLUME 90.2 fL (80.0-94.0); PLATELET 114 x1000/uL (130-400); RED BLOOD CELL COUNT 2.64 mill/uL (4.7-6.1); RED CELL DISTRIBUTION WIDTH 18.2 % (11.6-14.6)
[2018-06-23] MEDS: LORAZEPAM 2MG/ML CPJ IV PRN (14:21)
[2018-06-23] MEDS ORDERED: SORBITOL 70% SOLN 30ML PO NR ×2 (16:00→20:00)
[2018-06-23 19:41] LABS: HEMATOCRIT 25.3 % (42.0-52.0); HEMOGLOBIN 8.4 g/dL (14.0-18.0); MEAN CORPUSCULAR HEMOGLOBIN 29.9 pg (28.0-32.0); MEAN CORPUSCULAR VOLUME 89.8 fL (80.0-94.0); PLATELET 118 x1000/uL (130-400); RED BLOOD CELL COUNT 2.82 mill/uL (4.7-6.1); RED CELL DISTRIBUTION WIDTH 17.6 % (11.6-14.6)
[2018-06-23] MEDS: QUETIAPINE FUMARATE 25MG TABLET PO SCH (23:45)
[2018-06-24] VITALS (12 sets, daily range): BP systolic 130–164; BP diastolic 68–97
[2018-06-24] MEDS: IPRATROPIUM/ALBUTEROL 0.5-3(2.5)MG/3ML NEB HHN SCH ×6 (01:06→20:55)
[2018-06-24] MEDS: METHYLPREDNISOLONE SOD SUCC 40 MG/ML VIAL IV SCH ×3 (05:28→23:30)
[2018-06-24] MEDS: BLOOD SUGAR DIAGNOSTIC STRIP TEST SCH ×4 (05:28→23:31)
[2018-06-24] MEDS: PIPERACILLIN/TAZ 3.375G PREMIX 50 ML IV SCH ×4 (05:28→23:30)
[2018-06-24 05:56] LABS: BASOPHILS % 0.3 % (0.0-2.0); HEMATOCRIT. 25.2 % (42.0-52.0); HEMOGLOBIN. 8.3 g/dL (14.0-18.0); LYMPHOCYTES % 8.9 % (20.0-50.0); MEAN CORPUSCULAR HEMOGLOBIN 30.2 pg (28.0-32.0); MEAN CORPUSCULAR VOLUME 91.3 fL (80.0-94.0); MEAN PLATELET VOLUME 8.4 fl (7.4-10.4); MONOCYTES % 7.3 % (2.0-8.0); NEUTROPHILS % 83.5 % (40.0-76.0); PLATELET 124 x1000/uL (130-400); RED BLOOD CELL COUNT 2.76 mill/uL (4.7-6.1); RED CELL DISTRIBUTION WIDTH 17.8 % (11.6-14.6)
[2018-06-24] MEDS ORDERED: SORBITOL 70% SOLN 30ML PO NR (06:00)
[2018-06-24 06:20] LABS: CHLORIDE 134 mEq/L (98-107)
[2018-06-24] MEDS ORDERED: HYDRALAZINE 20MG/ML VIAL IV NR (06:55)
[2018-06-24] MEDS: INSULIN LISPRO 100 UNITS/ML SUBCUT SCH ×4 (07:01→23:58)
[2018-06-24] MEDS: VANCOMYCIN 1 G PREMIX 200 ML IV SCH (08:04)
[2018-06-24] MEDS: QUETIAPINE FUMARATE 25MG TABLET PO SCH (08:17)
[2018-06-24] MEDS: LORAZEPAM 2MG/ML CPJ IV PRN (08:18)
[2018-06-24] MEDS: DEXT 5%/0.45% NACL 1000ML 1,000 ML IV SCH ×2 (08:18→23:31)
[2018-06-24] MEDS: PANTOPRAZOLE 80 MG in SODIUM CHLORIDE 0.9% 100 ML IV SCH (08:18)
[2018-06-24] MEDS ORDERED: POTASSIUM CHLORIDE INJ 40 MEQ in DEXT 5% WATER 250 ML IV NR (10:00)
[2018-06-24] MEDS ORDERED: SIMETHICONE 40 MG/0.6 ML 30ML ONE ×2 (15:01→15:05)
[2018-06-24] MEDS ORDERED: MIDAZOLAM HCL 5 MG/5 ML VIAL ONE (15:01)
[2018-06-24] MEDS ORDERED: FENTANYL CITRATE/PF 50MCG/ML 2ML VIAL ONE (15:02)
[2018-06-24] MEDS ORDERED: BACTERIOSTATIC SODIUM CHLORIDE 0.9% 30ML VIAL IJ ONE (15:05)
[2018-06-24] MEDS ORDERED: MIDAZOLAM HCL 5 MG/5 ML VIAL IV PRN (15:26)
[2018-06-25] VITALS (12 sets, daily range): BP systolic 111–158; BP diastolic 75–94
[2018-06-25] MEDS: VANCOMYCIN 1 G PREMIX 200 ML IV SCH (00:03)
[2018-06-25] MEDS: IPRATROPIUM/ALBUTEROL 0.5-3(2.5)MG/3ML NEB HHN SCH ×6 (01:12→21:10)
[2018-06-25] MEDS: PIPERACILLIN/TAZ 3.375G PREMIX 50 ML IV SCH ×4 (05:22→23:03)
[2018-06-25] MEDS: METHYLPREDNISOLONE SOD SUCC 40 MG/ML VIAL IV SCH ×3 (05:22→22:46)
[2018-06-25] MEDS: BLOOD SUGAR DIAGNOSTIC STRIP TEST SCH ×4 (05:22→23:02)
[2018-06-25] MEDS: INSULIN LISPRO 100 UNITS/ML SUBCUT SCH ×4 (05:39→23:01)
[2018-06-25] MEDS: LORAZEPAM 2MG/ML CPJ IV PRN (06:42)
[2018-06-25 07:37] LABS: CHLORIDE 135 mEq/L (98-107)
[2018-06-25 07:53] LABS: BASOPHILS % 0.1 % (0.0-2.0); EOSINOPHILS % 0.1 % (0.0-5.0); HEMATOCRIT. 25.7 % (42.0-52.0); HEMOGLOBIN. 8.4 g/dL (14.0-18.0); LYMPHOCYTES % 14.5 % (20.0-50.0); MEAN CORPUSCULAR HEMOGLOBIN 29.9 pg (28.0-32.0); MEAN CORPUSCULAR VOLUME 91.1 fL (80.0-94.0); NEUTROPHILS % 78.3 % (40.0-76.0); PLATELET 96 x1000/uL (130-400); RED BLOOD CELL COUNT 2.82 mill/uL (4.7-6.1)
[2018-06-25] MEDS: PANTOPRAZOLE SODIUM 40 MG/VIAL IV SCH (08:59)
[2018-06-25] MEDS: QUETIAPINE FUMARATE 25MG TABLET PO SCH (08:59)
[2018-06-25] MEDS: DEXTROSE 5% WATER 1,000 ML IV SCH (14:33)
[2018-06-25 14:52] LABS: BG BASE EXCESS -4.7 mmol/L (-2.0-2.0); BG CARBOXYHEMOGLOBIN 0.3 % (0.5-1.5); BG DEOXYHEMOGLOBIN 0.8 % (0.0-5.0); BG FRACTION INSPIRED OXYGEN 80; BG HCO3 ACT 18.7 mmol/L (22.0-26.0); BG METHEMOGLOBIN 0.4 % (0.0-1.5); BG OXYGEN SATURATION 99.2 % (92.0-98.5); BG OXYHEMOGLOBIN 98.5 % (94.0-97.0); BG PCO2 28.4 mmHg (35.0-45.0); BG PH 7.437 (7.350-7.450); BG PO2 373.8 mmHg (75.0-100.0); BG SAMPLE SITE RIGHT BRACHIAL; BG TIDAL VOLUME(mL) 500 mL; BG TOTAL HEMOGLOBIN 8.6 g/dL (12.0-18.0); BG VENT MODE VENT - A/C; BG VENT RATE 14 set
[2018-06-25] MEDS ORDERED: VANCOMYCIN 750 MG PREMIX 150 ML IV SCH (19:00)
[2018-06-25] MEDS: VANCOMYCIN 750 MG PREMIX 150 ML IV SCH (22:47)
[2018-06-26] VITALS (12 sets, daily range): BP systolic 128–155; BP diastolic 70–91
[2018-06-26] MEDS: IPRATROPIUM/ALBUTEROL 0.5-3(2.5)MG/3ML NEB HHN SCH ×6 (00:40→19:59)
[2018-06-26] MEDS: BLOOD SUGAR DIAGNOSTIC STRIP TEST SCH ×4 (05:30→23:15)
[2018-06-26 06:10] LABS: BASOPHILS % 0.1 % (0.0-2.0); EOSINOPHILS % 0.1 % (0.0-5.0); HEMATOCRIT. 25.6 % (42.0-52.0); HEMOGLOBIN. 8.5 g/dL (14.0-18.0); LYMPHOCYTES % 11.4 % (20.0-50.0); MEAN CORPUSCULAR HEMOGLOBIN 30.2 pg (28.0-32.0); MEAN CORPUSCULAR VOLUME 91.1 fL (80.0-94.0); MONOCYTES % 9.4 % (2.0-8.0); PLATELET 83 x1000/uL (130-400); RED BLOOD CELL COUNT 2.81 mill/uL (4.7-6.1); RED CELL DISTRIBUTION WIDTH 17.5 % (11.6-14.6)
[2018-06-26 06:15] LABS: CHLORIDE 129 mEq/L (98-107)
[2018-06-26 06:22] LABS: PHOSPHORUS 2.2 mg/dL (2.5-4.9)
[2018-06-26] MEDS: PIPERACILLIN/TAZ 3.375G PREMIX 50 ML IV SCH ×4 (06:30→23:15)
[2018-06-26] MEDS: METHYLPREDNISOLONE SOD SUCC 40 MG/ML VIAL IV SCH ×3 (06:30→23:15)
[2018-06-26] MEDS: DEXTROSE 5% WATER 1,000 ML IV SCH (06:31)
[2018-06-26] MEDS: INSULIN LISPRO 100 UNITS/ML SUBCUT SCH ×4 (06:40→23:34)
[2018-06-26] MEDS: PANTOPRAZOLE SODIUM 40 MG/VIAL IV SCH (10:04)
[2018-06-26] MEDS: QUETIAPINE FUMARATE 25MG TABLET PO SCH (10:04)
[2018-06-26] MEDS ORDERED: POTASSIUM PHOS,M-BASIC-D-BASIC 15 MMOL in DEXT 5% WATER 245 ML IV NR (13:00)
[2018-06-26] MEDS: POTASSIUM CHLORIDE INJ 30 MEQ in DEXTROSE 5% WATER 1,000 ML IV SCH (13:04)
[2018-06-26] MEDS: VANCOMYCIN 750 MG PREMIX 150 ML IV SCH (15:55)
[2018-06-26] MEDS: ONDANSETRON HCL 4MG/2ML INJ IV PRN (23:28)
[2018-06-27] VITALS (12 sets, daily range): BP systolic 123–163; BP diastolic 70–88
[2018-06-27] MEDS: IPRATROPIUM/ALBUTEROL 0.5-3(2.5)MG/3ML NEB HHN SCH ×6 (00:17→21:07)
[2018-06-27] MEDS: POTASSIUM CHLORIDE INJ 30 MEQ in DEXTROSE 5% WATER 1,000 ML IV SCH (01:20)
[2018-06-27] MEDS: PIPERACILLIN/TAZ 3.375G PREMIX 50 ML IV SCH ×3 (05:21→18:57)
[2018-06-27] MEDS: BLOOD SUGAR DIAGNOSTIC STRIP TEST SCH ×4 (05:22→23:30)
[2018-06-27] MEDS: METHYLPREDNISOLONE SOD SUCC 40 MG/ML VIAL IV SCH ×2 (05:22→14:48)
[2018-06-27] MEDS: INSULIN LISPRO 100 UNITS/ML SUBCUT SCH ×3 (05:35→18:58)
[2018-06-27 06:57] LABS: BASOPHILS % 0.2 % (0.0-2.0); EOSINOPHILS % 0.9 % (0.0-5.0); HEMOGLOBIN. 8.8 g/dL (14.0-18.0); MEAN CORPUSCULAR HEMOGLOBIN 30.1 pg (28.0-32.0); MEAN CORPUSCULAR VOLUME 91.8 fL (80.0-94.0); MEAN PLATELET VOLUME 9.3 fl (7.4-10.4); MONOCYTES % 9.1 % (2.0-8.0); NEUTROPHILS % 78.8 % (40.0-76.0); PLATELET 76 x1000/uL (130-400); RED BLOOD CELL COUNT 2.94 mill/uL (4.7-6.1); RED CELL DISTRIBUTION WIDTH 17.3 % (11.6-14.6)
[2018-06-27 07:29] LABS: CHLORIDE 124 mEq/L (98-107)
[2018-06-27 07:53] LABS: PHOSPHORUS 2.3 mg/dL (2.5-4.9)
[2018-06-27] MEDS ORDERED: POTASSIUM CHLORIDE 20MEQ/PACKET PO SCH (09:15)
[2018-06-27] MEDS: QUETIAPINE FUMARATE 25MG TABLET PO SCH (09:15)
[2018-06-27] MEDS: PANTOPRAZOLE 40MG DR TABLET PO SCH (09:47)
[2018-06-27] MEDS ORDERED: POTASSIUM PHOS,M-BASIC-D-BASIC 20 MMOL in DEXT 5% WATER 250 ML IV SCH ×2 (10:30→17:00)
[2018-06-27] MEDS ORDERED: LIDOCAINE HCL 1% 20ML VIAL (Pyxis) INJ ONE (12:55)
[2018-06-27] MEDS: POTASSIUM CHLORIDE INJ 40 MEQ in DEXTROSE 5% WATER 1,000 ML IV SCH (14:48)
[2018-06-27] MEDS: VANCOMYCIN 750 MG PREMIX 150 ML IV SCH (15:08)
[2018-06-28] VITALS (10 sets, daily range): BP systolic 127–148; BP diastolic 75–91
[2018-06-28] MEDS: METHYLPREDNISOLONE SOD SUCC 40 MG/ML VIAL IV SCH ×3 (00:35→14:25)
[2018-06-28] MEDS: INSULIN LISPRO 100 UNITS/ML SUBCUT SCH ×3 (00:35→11:36)
[2018-06-28] MEDS: PIPERACILLIN/TAZ 3.375G PREMIX 50 ML IV SCH ×3 (00:35→11:35)
[2018-06-28] MEDS: POTASSIUM CHLORIDE INJ 40 MEQ in DEXTROSE 5% WATER 1,000 ML IV SCH (00:36)
[2018-06-28] MEDS: IPRATROPIUM/ALBUTEROL 0.5-3(2.5)MG/3ML NEB HHN SCH ×4 (00:40→12:00)
[2018-06-28] MEDS: BLOOD SUGAR DIAGNOSTIC STRIP TEST SCH ×2 (06:09→11:26)
[2018-06-28] MEDS: PANTOPRAZOLE 40MG DR TABLET PO SCH (06:09)
[2018-06-28 06:47] LABS: BASOPHILS % 0.1 % (0.0-2.0); EOSINOPHILS % 3.1 % (0.0-5.0); HEMATOCRIT. 26.9 % (42.0-52.0); HEMOGLOBIN. 9.3 g/dL (14.0-18.0); LYMPHOCYTES % 12.5 % (20.0-50.0); MEAN CORPUSCULAR HEMOGLOBIN 30.8 pg (28.0-32.0); MEAN CORPUSCULAR VOLUME 89.5 fL (80.0-94.0); MONOCYTES % 12.7 % (2.0-8.0); NEUTROPHILS % 71.6 % (40.0-76.0)
[2018-06-28 07:02] LABS: CHLORIDE 121 mEq/L (98-107)
[2018-06-28 07:08] LABS: PHOSPHORUS 2.1 mg/dL (2.5-4.9)
[2018-06-28] MEDS: QUETIAPINE FUMARATE 25MG TABLET PO SCH (08:03)
[2018-06-28] MEDS ORDERED: POTASSIUM-SODIUM PHOSPHATE POWDER PACKET PO SCH (10:30)
[2018-06-28 11:25] LABS: PLATELET 88 x1000/uL (130-400)
[2018-06-28] MEDS ORDERED: MAGNESIUM 2 G PREMIX 50 ML IV NR (12:00)
[2018-06-28] MEDS ORDERED: POTASSIUM CHLORIDE INJ 20 MEQ in DEXTROSE 5% WATER 1,000 ML IV SCH (12:00)
[2018-06-28] MEDS ORDERED: CALCIUM GLUCONATE 1,000 MG in DEXT 5% WATER 90 ML IV NR (12:00)
[2018-06-28] MEDS ORDERED: POTASSIUM PHOS,M-BASIC-D-BASIC 30 MMOL in DEXT 5% WATER 500 ML IV NR (12:00)
[2018-06-28] MEDS ORDERED: DEXT 5% WATER + KCL 20MEQ/L 1,000 ML IV SCH (12:30)
[2018-06-28] MEDS: ACETAMINOPHEN 325MG TABLET PEG PRN (14:25)
== END 2018-06-28 17:27 | DRG 720 ==
LOC: ER 09:00 → EDBEDREQ 10:50 → ENRESERV 06-21 11:09 → 5EST 06-21 11:27
PROVIDERS: ADMIT Internal Medicine; ATTEND Internal Medicine
PROC: 5A1955Z Respiratory Ventilation, Greater than 96 Consecutive Hours (ICD-10-PCS; principal; 2018-06-20)
PROC: 30233N1 Transfusion of Nonautologous Red Blood Cells into Peripheral Vein, Percutaneous Approach (ICD-10-PCS; 2018-06-20)
PROC: 02HV33Z Insertion of Infusion Device into Superior Vena Cava, Percutaneous Approach (ICD-10-PCS; 2018-06-20)
PROC: B548ZZA Ultrasonography of Superior Vena Cava, Guidance (ICD-10-PCS; 2018-06-20)
PROC: 0DJ68ZZ Inspection of Stomach, Via Natural or Artificial Opening Endoscopic (ICD-10-PCS; 2018-06-22)
PROC: 0DJD8ZZ Inspection of Lower Intestinal Tract, Via Natural or Artificial Opening Endoscopic (ICD-10-PCS; 2018-06-24)
DX: A41.9 Sepsis, unspecified organism (principal); J96.20 Acute and chronic respiratory failure, unspecified whether with hypoxia or hypercapnia; Z99.11 Dependence on respirator [ventilator] status; N17.9 Acute kidney failure, unspecified; K57.31 Diverticulosis of large intestine without perforation or abscess with bleeding; K92.0 Hematemesis; Z93.0 Tracheostomy status; J44.1 Chronic obstructive pulmonary disease with (acute) exacerbation; D62 Acute posthemorrhagic anemia; C90.00 Multiple myeloma not having achieved remission; E87.0 Hyperosmolality and hypernatremia; D69.6 Thrombocytopenia, unspecified; E83.52 Hypercalcemia; E87.6 Hypokalemia; D63.8 Anemia in other chronic diseases classified elsewhere; N39.0 Urinary tract infection, site not specified; N18.9 Chronic kidney disease, unspecified; E86.0 Dehydration; F10.21 Alcohol dependence, in remission; F17.200 Nicotine dependence, unspecified, uncomplicated; I50.32 Chronic diastolic (congestive) heart failure; I13.0 Hypertensive heart and chronic kidney disease with heart failure and stage 1 through stage 4 chronic kidney disease, or unspecified chronic kidney disease; K21.9 Gastro-esophageal reflux disease without esophagitis; K64.8 Other hemorrhoids; N40.0 Benign prostatic hyperplasia without lower urinary tract symptoms; R13.10 Dysphagia, unspecified; T38.0X5A Adverse effect of glucocorticoids and synthetic analogues, initial encounter; Z82.49 Family history of ischemic heart disease and other diseases of the circulatory system; Z87.01 Personal history of pneumonia (recurrent); Z87.19 Personal history of other diseases of the digestive system; Z93.1 Gastrostomy status; Z79.899 Other long term (current) drug therapy
CPT/HCPCS: 36415; 36569; 36600; 71045; 74176; 76700; 76937; 80048; 80202; 82270; 82330; 82375; 82805; 82962; 83735; 84100; 85014; 85018; 85027; 86705; 86709; 86803; 86850; 86900; 86920; 87340; 87389; 93970; 94002; 94003; 94640; 96374; 99285; C1725; C1893; C9113; J0360; J0610; J1815; J2060; J2250; J2270; J2405; J2543; J2920; J3010; J3370; J3430; J3475; J3480; J3490; J7030; J7040; J7050; J7060; J7070; J7620; P9016

== ENCOUNTER 2018-07-01 02:25 | Inpatient (IN) | payer MEDICAID ==
[~2018-07-01] VITALS: Ht 172.7 cm; Wt 61.9 kg
[2018-07-01] MEDS ORDERED: ONDANSETRON HCL 4MG/2ML INJ IV STA (02:33)
[2018-07-01] MEDS ORDERED: VANCOMYCIN 1 G PREMIX 200 ML IV ONE (02:45)
[2018-07-01] MEDS ORDERED: MEROPENEM 1,000 MG in SODIUM CHLORIDE 0.9% 100 ML IV ONE (02:45)
[2018-07-01 03:10] LABS: BG BASE EXCESS -5.3 mmol/L (-2.0-2.0); BG CARBOXYHEMOGLOBIN 0.3 % (0.5-1.5); BG DEOXYHEMOGLOBIN 0.8 % (0.0-5.0); BG FRACTION INSPIRED OXYGEN 50; BG HCO3 ACT 17.5 mmol/L (22.0-26.0); BG METHEMOGLOBIN 0.2 % (0.0-1.5); BG OXYGEN SATURATION 99.2 % (92.0-98.5); BG OXYHEMOGLOBIN 98.7 % (94.0-97.0); BG PCO2 25.2 mmHg (35.0-45.0); BG PH 7.459 (7.350-7.450); BG PO2 276.8 mmHg (75.0-100.0); BG SAMPLE SITE LEFT RADIAL; BG TIDAL VOLUME(mL) 500 mL; BG TOTAL HEMOGLOBIN 9.3 g/dL (12.0-18.0); BG VENT MODE VENT - A/C; BG VENT RATE 14 set
[2018-07-01 03:14] LABS: BASOPHILS % 0.2 % (0.0-2.0); EOSINOPHILS % 1.3 % (0.0-5.0); HEMATOCRIT. 21.9 % (42.0-52.0); HEMOGLOBIN. 7.2 g/dL (14.0-18.0); LYMPHOCYTES % 21.5 % (20.0-50.0); MEAN CORPUSCULAR VOLUME 91.6 fL (80.0-94.0); MONOCYTES % 8.4 % (2.0-8.0); NEUTROPHILS % 68.6 % (40.0-76.0); PLATELET 134 x1000/uL (130-400); RED BLOOD CELL COUNT 2.39 mill/uL (4.7-6.1); RED CELL DISTRIBUTION WIDTH 16.6 % (11.6-14.6)
[2018-07-01 03:45] LABS: CHLORIDE 112 mEq/L (98-107)
[2018-07-01] MEDS ORDERED: SODIUM CHLORIDE 0.9% 1000ML BAG (SEPSIS BOLUS) IV ONE (05:30)
[2018-07-01] MEDS ORDERED: ACETAMINOPHEN 325MG TABLET PO PRN (12:45)
[2018-07-01] MEDS ORDERED: DOCUSATE SODIUM 100MG CAPSULE PO PRN (12:45)
[2018-07-01] MEDS ORDERED: LORAZEPAM 2MG/ML CPJ IV PRN (12:45)
[2018-07-01] MEDS ORDERED: HYDROCODONE/ACETAMINOPHEN 5/325MG TABLET PO PRN (12:45)
[2018-07-01] MEDS ORDERED: ONDANSETRON HCL 4MG/2ML INJ IV PRN (12:45)
[2018-07-01] MEDS ORDERED: PANTOPRAZOLE SODIUM 40 MG/VIAL IV SCH ×2 (13:00→16:15)
[2018-07-01] MEDS ORDERED: POTASSIUM CHLORIDE INJ 40 MEQ in DEXT 5% WATER 250 ML IV SCH (13:30)
[2018-07-01 14:51] LABS: CREATINE KINASE MB FRACTION 3.2 ng/mL (0.5-3.6)
[2018-07-01 16:02] LABS: HEMATOCRIT 18.1 % (42.0-52.0); HEMOGLOBIN 6.1 g/dL (14.0-18.0)
[2018-07-01 20:13] LABS: TOTAL IRON BINDING CAPACITY 111 ug/dL (250-450)
[2018-07-01 22:30] VITALS: BP 110/60
[2018-07-01 23:00] VITALS: BP 128/51
[2018-07-01 23:30] VITALS: BP 119/67
[2018-07-01] MEDS: TAMSULOSIN HCL 0.4MG SR CAPSULE PO SCH (23:44)
[2018-07-01] MEDS: SUCRALFATE 1 G/10 ML UDC PO SCH (23:44)
[2018-07-01] MEDS: RISPERIDONE 1MG TABLET GT SCH (23:45)
[2018-07-02] VITALS (37 sets, daily range): BP systolic 93–139; BP diastolic 53–89
[2018-07-02 05:43] LABS: BASOPHILS % 0.1 % (0.0-2.0); EOSINOPHILS % 1.1 % (0.0-5.0); HEMATOCRIT. 22.5 % (42.0-52.0); HEMOGLOBIN. 7.8 g/dL (14.0-18.0); LYMPHOCYTES % 28.4 % (20.0-50.0); MEAN CORPUSCULAR HEMOGLOBIN 30.8 pg (28.0-32.0); MEAN CORPUSCULAR VOLUME 88.9 fL (80.0-94.0); MONOCYTES % 10.2 % (2.0-8.0); NEUTROPHILS % 60.2 % (40.0-76.0); PLATELET 97 x1000/uL (130-400); RED BLOOD CELL COUNT 2.53 mill/uL (4.7-6.1); RED CELL DISTRIBUTION WIDTH 15.4 % (11.6-14.6)
[2018-07-02 05:53] LABS: CHLORIDE 121 mEq/L (98-107)
[2018-07-02] MEDS ORDERED: POTASSIUM CHLORIDE 20MEQ TABLET SR PO SCH ×2 (06:30→10:30)
[2018-07-02] MEDS: DEXTROSE 5% WATER 1,000 ML IV SCH (06:56)
[2018-07-02] MEDS: SUCRALFATE 1 G/10 ML UDC PO SCH ×4 (10:04→20:11)
[2018-07-02] MEDS: PANTOPRAZOLE SODIUM 40 MG/VIAL IV SCH ×2 (10:04→18:13)
[2018-07-02] MEDS: RISPERIDONE 1MG TABLET GT SCH ×2 (10:04→20:11)
[2018-07-02] MEDS: THIAMINE HCL 100MG TABLET PO SCH (10:04)
[2018-07-02] MEDS ORDERED: MAGNESIUM 2 G PREMIX 50 ML IV SCH (11:00)
[2018-07-02 16:34] LABS: INR 1.3; PARTIAL THROMBOPLASTIN TIME 28.9 sec (23.4-31.0); PROTHROMBIN TIME 12.7 sec (9.1-11.1)
[2018-07-02 16:41] LABS: HEMATOCRIT 20.5 % (42.0-52.0); HEMOGLOBIN 6.9 g/dL (14.0-18.0)
[2018-07-02] MEDS: TAMSULOSIN HCL 0.4MG SR CAPSULE PO SCH (20:11)
[2018-07-02 23:36] LABS: HEMATOCRIT 22.6 % (42.0-52.0); HEMOGLOBIN 8.3 g/dL (14.0-18.0)
[2018-07-03] VITALS (31 sets, daily range): BP systolic 107–157; BP diastolic 53–97
[2018-07-03 00:02] LABS: CHLORIDE 121 mEq/L (98-107)
[2018-07-03] MEDS: DEXTROSE 5% WATER 1,000 ML IV SCH ×2 (03:30→21:40)
[2018-07-03 05:22] LABS: BASOPHILS % 0.3 % (0.0-2.0); EOSINOPHILS % 1.8 % (0.0-5.0); HEMATOCRIT. 22.1 % (42.0-52.0); HEMOGLOBIN. 7.6 g/dL (14.0-18.0); LYMPHOCYTES % 18.1 % (20.0-50.0); MEAN CORPUSCULAR HEMOGLOBIN 30.3 pg (28.0-32.0); MEAN CORPUSCULAR VOLUME 88.3 fL (80.0-94.0); MEAN PLATELET VOLUME 8.6 fl (7.4-10.4); MONOCYTES % 12.4 % (2.0-8.0); NEUTROPHILS % 67.4 % (40.0-76.0); PLATELET 96 x1000/uL (130-400); RED BLOOD CELL COUNT 2.51 mill/uL (4.7-6.1); RED CELL DISTRIBUTION WIDTH 15.6 % (11.6-14.6)
[2018-07-03 05:48] LABS: CHLORIDE 120 mEq/L (98-107)
[2018-07-03] MEDS: PANTOPRAZOLE SODIUM 40 MG/VIAL IV SCH ×2 (09:28→17:57)
[2018-07-03] MEDS: RISPERIDONE 1MG TABLET GT SCH ×2 (09:28→21:40)
[2018-07-03] MEDS: THIAMINE HCL 100MG TABLET PO SCH (09:28)
[2018-07-03] MEDS: SUCRALFATE 1 G/10 ML UDC PO SCH ×4 (09:28→21:39)
[2018-07-03] MEDS ORDERED: FENTANYL CITRATE/PF 50MCG/ML 2ML VIAL ONE (09:46)
[2018-07-03] MEDS ORDERED: MIDAZOLAM HCL 5 MG/5 ML VIAL ONE ×2 (09:47→12:39)
[2018-07-03] MEDS ORDERED: BACTERIOSTATIC SODIUM CHLORIDE 0.9% 30ML VIAL IJ ONE (14:58)
[2018-07-03] MEDS: TAMSULOSIN HCL 0.4MG SR CAPSULE PO SCH (21:39)
[2018-07-04] VITALS (71 sets, daily range): BP systolic 104–154; BP diastolic 55–111
[2018-07-04 05:51] LABS: BASOPHILS % 0.2 % (0.0-2.0); EOSINOPHILS % 2.5 % (0.0-5.0); HEMATOCRIT. 22.5 % (42.0-52.0); HEMOGLOBIN. 7.7 g/dL (14.0-18.0); LYMPHOCYTES % 21.8 % (20.0-50.0); MEAN CORPUSCULAR HEMOGLOBIN 30.8 pg (28.0-32.0); MEAN CORPUSCULAR VOLUME 89.7 fL (80.0-94.0); MEAN PLATELET VOLUME 8.6 fl (7.4-10.4); MONOCYTES % 13.8 % (2.0-8.0); NEUTROPHILS % 61.7 % (40.0-76.0); PLATELET 94 x1000/uL (130-400); RED BLOOD CELL COUNT 2.51 mill/uL (4.7-6.1); RED CELL DISTRIBUTION WIDTH 15.9 % (11.6-14.6)
[2018-07-04 06:02] LABS: CHLORIDE 115 mEq/L (98-107)
[2018-07-04] MEDS: THIAMINE HCL 100MG TABLET PO SCH (09:00)
[2018-07-04] MEDS: RISPERIDONE 1MG TABLET GT SCH ×2 (09:00→20:46)
[2018-07-04] MEDS: SUCRALFATE 1 G/10 ML UDC PO SCH ×4 (09:00→20:46)
[2018-07-04] MEDS ORDERED: DIATR MEGLU/DIATRIZOATE SOLN 30ML PO SCH (09:00)
[2018-07-04] MEDS: PANTOPRAZOLE SODIUM 40 MG/VIAL IV SCH ×2 (09:28→18:17)
[2018-07-04] MEDS ORDERED: POTASSIUM CHLORIDE INJ 40 MEQ in DEXT 5% WATER 250 ML IV NR (11:00)
[2018-07-04] MEDS ORDERED: IOHEXOL-300 100 ML BOTTLE ONE (13:53)
[2018-07-04] MEDS: DEXTROSE 5% WATER 1,000 ML IV SCH (20:46)
[2018-07-04] MEDS: TAMSULOSIN HCL 0.4MG SR CAPSULE PO SCH (20:47)
[2018-07-05] VITALS (33 sets, daily range): BP systolic 107–146; BP diastolic 13–108
[2018-07-05 04:35] LABS: BASOPHILS % 0.3 % (0.0-2.0); EOSINOPHILS % 2.3 % (0.0-5.0); HEMATOCRIT. 22.4 % (42.0-52.0); HEMOGLOBIN. 7.7 g/dL (14.0-18.0); LYMPHOCYTES % 20.7 % (20.0-50.0); MEAN CORPUSCULAR HEMOGLOBIN 30.7 pg (28.0-32.0); MEAN CORPUSCULAR VOLUME 88.9 fL (80.0-94.0); MEAN PLATELET VOLUME 7.9 fl (7.4-10.4); MONOCYTES % 10.6 % (2.0-8.0); NEUTROPHILS % 66.1 % (40.0-76.0); PLATELET 112 x1000/uL (130-400); RED BLOOD CELL COUNT 2.52 mill/uL (4.7-6.1); RED CELL DISTRIBUTION WIDTH 15.6 % (11.6-14.6)
[2018-07-05 04:50] LABS: CHLORIDE 112 mEq/L (98-107)
[2018-07-05] MEDS: THIAMINE HCL 100MG TABLET PO SCH (08:57)
[2018-07-05] MEDS: SUCRALFATE 1 G/10 ML UDC PO SCH ×4 (08:57→21:09)
[2018-07-05] MEDS: PANTOPRAZOLE SODIUM 40 MG/VIAL IV SCH ×2 (08:57→16:55)
[2018-07-05] MEDS: RISPERIDONE 1MG TABLET GT SCH ×2 (08:57→21:09)
[2018-07-05] MEDS ORDERED: POTASSIUM CHLORIDE INJ 40 MEQ in DEXT 5% WATER 250 ML IV SCH (10:00)
[2018-07-05] MEDS: DEXTROSE 5% WATER 1,000 ML IV SCH (21:09)
[2018-07-05] MEDS: TAMSULOSIN HCL 0.4MG SR CAPSULE PO SCH (21:10)
[2018-07-06] VITALS (13 sets, daily range): BP systolic 104–139; BP diastolic 59–83
[2018-07-06 06:58] LABS: CHLORIDE 112 mEq/L (98-107)
[2018-07-06 07:26] LABS: BASOPHILS % 0.4 % (0.0-2.0); HEMATOCRIT. 22.5 % (42.0-52.0); HEMOGLOBIN. 7.6 g/dL (14.0-18.0); LYMPHOCYTES % 22.9 % (20.0-50.0); MEAN CORPUSCULAR HEMOGLOBIN 30.2 pg (28.0-32.0); MEAN CORPUSCULAR VOLUME 89.5 fL (80.0-94.0); MEAN PLATELET VOLUME 8.1 fl (7.4-10.4); MONOCYTES % 11.5 % (2.0-8.0); NEUTROPHILS % 63.2 % (40.0-76.0); PLATELET 138 x1000/uL (130-400); RED BLOOD CELL COUNT 2.52 mill/uL (4.7-6.1)
[2018-07-06] MEDS: IPRATROPIUM/ALBUTEROL 0.5-3(2.5)MG/3ML NEB INH PRN ×4 (07:42→20:07)
[2018-07-06] MEDS: THIAMINE HCL 100MG TABLET PO SCH (08:31)
[2018-07-06] MEDS: PANTOPRAZOLE SODIUM 40 MG/VIAL IV SCH ×2 (08:31→16:33)
[2018-07-06] MEDS: RISPERIDONE 1MG TABLET GT SCH (08:31)
[2018-07-06] MEDS: SUCRALFATE 1 G/10 ML UDC PO SCH ×3 (08:31→16:32)
[2018-07-06] MEDS ORDERED: POTASSIUM CHLORIDE 20MEQ TABLET SR PO NR ×2 (11:00→11:30)
[2018-07-06] MEDS ORDERED: POTASSIUM CHLORIDE 20MEQ/PACKET GT NR (13:45)
== END 2018-07-06 22:15 | DRG 130 ==
LOC: ER 02:25 → MICUSO 05:38 → EDBEDREQTM 05:41 → EDBEDREQSVC 05:41 → EDBEDREQ 05:41 → ENRESERV 20:59 → 5EST 07-05 12:29
PROVIDERS: ADMIT Internal Medicine; ATTEND Internal Medicine
PROC: 5A1955Z Respiratory Ventilation, Greater than 96 Consecutive Hours (ICD-10-PCS; principal; 2018-07-01)
PROC: 30233N1 Transfusion of Nonautologous Red Blood Cells into Peripheral Vein, Percutaneous Approach (ICD-10-PCS; 2018-07-01)
PROC: 0DJ08ZZ Inspection of Upper Intestinal Tract, Via Natural or Artificial Opening Endoscopic (ICD-10-PCS; 2018-07-03)
DX: J96.20 Acute and chronic respiratory failure, unspecified whether with hypoxia or hypercapnia (principal); E43 Unspecified severe protein-calorie malnutrition; L89.313 Pressure ulcer of right buttock, stage 3; C90.00 Multiple myeloma not having achieved remission; D68.9 Coagulation defect, unspecified; K25.4 Chronic or unspecified gastric ulcer with hemorrhage; K57.31 Diverticulosis of large intestine without perforation or abscess with bleeding; E11.22 Type 2 diabetes mellitus with diabetic chronic kidney disease; Z99.11 Dependence on respirator [ventilator] status; Z93.0 Tracheostomy status; K29.61 Other gastritis with bleeding; I50.32 Chronic diastolic (congestive) heart failure; E87.6 Hypokalemia; N40.0 Benign prostatic hyperplasia without lower urinary tract symptoms; E83.52 Hypercalcemia; K29.80 Duodenitis without bleeding; K64.8 Other hemorrhoids; I07.1 Rheumatic tricuspid insufficiency; E11.65 Type 2 diabetes mellitus with hyperglycemia; N18.9 Chronic kidney disease, unspecified; J44.9 Chronic obstructive pulmonary disease, unspecified; D64.9 Anemia, unspecified; I13.0 Hypertensive heart and chronic kidney disease with heart failure and stage 1 through stage 4 chronic kidney disease, or unspecified chronic kidney disease; Z87.891 Personal history of nicotine dependence; Z93.1 Gastrostomy status; Z78.1 Physical restraint status; Z79.899 Other long term (current) drug therapy; Z87.01 Personal history of pneumonia (recurrent); Z87.11 Personal history of peptic ulcer disease
CPT/HCPCS: 36415; 36600; 71045; 74177; 80048; 82375; 82550; 82553; 82728; 82805; 82962; 83540; 83550; 83605; 83735; 83880; 84134; 84145; 84484; 85014; 85018; 86850; 86900; 86920; 93005; 93970; 94002; 94003; 96365; 96366; 96375; 97162; 97166; 99291; C9113; J2185; J2250; J2405; J3010; J3370; J3475; J3480; J3490; J7030; J7050; J7060; J7070; J7620; P9016; Q9963; Q9967; A4315

== ENCOUNTER 2020-09-19 20:54 | Inpatient (IN) | payer MEDICARE, MEDICAID ==
[~2020-09-19] VITALS: Ht 160 cm; Wt 68.0 kg
[2020-09-19] MEDS ORDERED: ACETAMINOPHEN 325MG TABLET PO STA (22:30)
[2020-09-19 22:50] LABS: HEMATOCRIT. 44.5 % (42.0-52.0); HEMOGLOBIN. 15.1 g/dL (14.0-18.0); MEAN CORPUSCULAR HEMOGLOBIN 31.5 pg (28.0-32.0); MEAN PLATELET VOLUME 7.4 fl (7.4-10.4); PLATELET 217 x1000/uL (130-400); RED BLOOD CELL COUNT 4.78 mill/uL (4.7-6.1)
[2020-09-19 22:57] LABS: CHLORIDE 106 mEq/L (98-107)
[2020-09-19 23:14] LABS: PLATELET ESTIMATE NORMAL
[2020-09-20 01:16] LABS: CLARITY URINE CLEAR (CLEAR); COLOR URINE DARK YELLOW (YELLOW); KETONES URINE NEGATIVE (NEGATIVE); LEUKOCYTE ESTERASE URINE NEGATIVE (NEGATIVE); NITRITE URINE NEGATIVE (NEGATIVE); OCCULT BLOOD URINE NEGATIVE (NEGATIVE); PROTEIN URINE 1+ (NEGATIVE); SPECIFIC GRAVITY URINE 1.028 (1.005-1.030); UROBILINOGEN URINE 0.2 E.U./dL (0.2-1.0)
[2020-09-20] MEDS ORDERED: TRAMADOL 50MG TABLET PO PRN (09:00)
[2020-09-20] MEDS ORDERED: ONDANSETRON HCL 4MG/2ML INJ IV PRN (09:00)
[2020-09-20] MEDS ORDERED: ACETAMINOPHEN 325MG TABLET PO PRN (09:00)
[2020-09-20] MEDS ORDERED: IPRATROPIUM/ALBUTEROL 0.5-3(2.5)MG/3ML NEB HHN PRN (09:00)
[2020-09-20] MEDS ORDERED: LIDOCAINE HCL 1% 20ML VIAL (Pyxis) INJ ONE (09:21)
[2020-09-20] MEDS ORDERED: IOHEXOL-350 100 ML BOTTLE ONE (09:50)
[2020-09-20] MEDS ORDERED: POTASSIUM CHLORIDE 20MEQ TABLET SR PO SCH (10:00)
[2020-09-20 12:04] LABS: *AMPHETAMINES SCREEN URINE NEGATIVE (NEGATIVE); CANNABINOID URINE SCREEN NEGATIVE (NEGATIVE); OPIATES URINE SCREEN NEGATIVE (NEGATIVE); PHENCYCLIDINE URINE SCREEN NEGATIVE (NEGATIVE)
[2020-09-20 12:05] LABS: *BARBITURATES SCREEN URINE NEGATIVE (NEGATIVE); *BENZODIAZEPINES SCREEN URINE NEGATIVE (NEGATIVE); *COCAINE SCREEN URINE NEGATIVE (NEGATIVE); METHADONE URINE SCREEN NEGATIVE (NEGATIVE)
[2020-09-20] MEDS: ENOXAPARIN 40MG/0.4ML SYR SUBCUT SCH (14:13)
[2020-09-20 16:00] VITALS: BP 134/73
[2020-09-20 16:08] VITALS: BP 115/67
[2020-09-20] MEDS ORDERED: AMLO5TAB88 PO (16:34)
[2020-09-20] MEDS ORDERED: DEXA4TAB PO (16:35)
[2020-09-20] MEDS ORDERED: LENA10CA PO (16:35)
[2020-09-20] MEDS: REVLIMID PO SCH (21:06)
[2020-09-20 21:10] VITALS: BP 115/79
[2020-09-21 00:33] VITALS: BP 148/88
[2020-09-21 04:57] VITALS: BP 147/73
[2020-09-21 08:00] VITALS: BP 118/71
[2020-09-21] MEDS: REVLIMID PO SCH (08:02)
[2020-09-21] MEDS: ENOXAPARIN 40MG/0.4ML SYR SUBCUT SCH (08:03)
[2020-09-21] MEDS ORDERED: AMLODIPINE 5MG TABLET PO SCH (09:00)
[2020-09-21 12:00] VITALS: BP 124/68
[2020-09-21 14:12] VITALS: BP 124/68
== END 2020-09-21 15:45 | disposition home or self-care (01) | DRG 143 ==
LOC: ER 20:54 → 5WST 09-20 02:48 → ENRESERV 09-20 14:58
PROVIDERS: ADMIT Internal Medicine; ATTEND Internal Medicine
PROC: 02HV33Z Insertion of Infusion Device into Superior Vena Cava, Percutaneous Approach (ICD-10-PCS; principal; 2020-09-20)
PROC: B548ZZA Ultrasonography of Superior Vena Cava, Guidance (ICD-10-PCS; 2020-09-20)
PROC: B5181ZA Fluoroscopy of Superior Vena Cava using Low Osmolar Contrast, Guidance (ICD-10-PCS; 2020-09-20)
DX: J93.9 Pneumothorax, unspecified (principal); J96.21 Acute and chronic respiratory failure with hypoxia; I13.0 Hypertensive heart and chronic kidney disease with heart failure and stage 1 through stage 4 chronic kidney disease, or unspecified chronic kidney disease; I50.32 Chronic diastolic (congestive) heart failure; J44.9 Chronic obstructive pulmonary disease, unspecified; E87.6 Hypokalemia; M19.90 Unspecified osteoarthritis, unspecified site; M48.54XA Collapsed vertebra, not elsewhere classified, thoracic region, initial encounter for fracture; N18.9 Chronic kidney disease, unspecified; N40.0 Benign prostatic hyperplasia without lower urinary tract symptoms; Z87.891 Personal history of nicotine dependence; Z87.01 Personal history of pneumonia (recurrent); Z79.899 Other long term (current) drug therapy; D72.829 Elevated white blood cell count, unspecified; R79.89 Other specified abnormal findings of blood chemistry; C90.01 Multiple myeloma in remission; Z87.19 Personal history of other diseases of the digestive system
CPT/HCPCS: 36415; 36573; 71045; 71275; 80053; 80305; 81003; 83880; 84484; 85025; 93005; 99285; C1725; J1650; J3490; Q9967

== ENCOUNTER 2020-12-18 09:28 | Emergency (ER) | payer MEDICARE, MEDICAID ==
[~2020-12-18] VITALS: Ht 157.5 cm; Wt 64.0 kg
[~2020-12-18 09:28] MED LIST changes: +AMLO5TAB88 PO; +DEXA4TAB PO; +LENA10CA PO
[2020-12-18 10:13] LABS: BASOPHILS % 0.1 % (0.0-2.0); HEMATOCRIT. 39.3 % (42.0-52.0); HEMOGLOBIN. 13.1 g/dL (14.0-18.0); MEAN CORPUSCULAR HEMOGLOBIN 31.4 pg (28.0-32.0); MEAN CORPUSCULAR VOLUME 94.2 fL (80.0-94.0); MEAN PLATELET VOLUME 7.5 fl (7.4-10.4); MONOCYTES % 7.5 % (2.0-8.0); NEUTROPHILS % 81.4 % (40.0-76.0); PLATELET 241 x1000/uL (130-400); RED BLOOD CELL COUNT 4.17 mill/uL (4.7-6.1); RED CELL DISTRIBUTION WIDTH 17.4 % (11.6-14.6)
[2020-12-18 10:17] LABS: CHLORIDE 106 mEq/L (98-107)
[2020-12-18] MEDS ORDERED: POTASSIUM BICARB/CIT ACID 25 MEQ TABLET.EFF PO NR (11:00)
[2020-12-18] MEDS ORDERED: POTA10CA42 MT (11:44)
[2020-12-18 12:21] VITALS: BP 130/66
== END 2020-12-18 12:25 | disposition home or self-care (01) ==
LOC: ER 09:28
DX: E87.6 Hypokalemia (principal); I11.0 Hypertensive heart disease with heart failure; I50.9 Heart failure, unspecified; Z85.9 Personal history of malignant neoplasm, unspecified; Z79.899 Other long term (current) drug therapy
CPT/HCPCS: 36415; 80053; 85025; 99283